=== PATIENT | female | born 1970 | race Caucasian/White ===

== ENCOUNTER 2019-01-05 23:42 | Emergency (ER) | payer OTHER ==
[2019-01-06 00:52] LABS: Basophils # (Auto) 0.1 K/mm3 (0.0-0.1); Basophils % (Auto) 0.9 % (0.0-1.8); Eosinophils # (Auto) 0.3 K/mm3 (0.0-0.4); Eosinophils % (Auto) 3.2 % (0.0-4.3); Hematocrit 42.1 % (30.3-42.9); Hemoglobin 14.2 gm/dl (10.1-14.3); Lymphocytes % (Auto) 20.8 % (13.4-35.0); Mean Corpuscular HGB Conc 34 % (30-34); Mean Corpuscular Volume 85 fl (79-97); Monocytes # (Auto) 0.6 K/mm3 (0.0-0.8); Monocytes % (Auto) 6.5 % (0.0-7.3); Platelet Count 363 K/mm3 (140-440); Red Blood Count 4.96 M/mm3 (3.65-5.03); Red Cell Distribution Width 13.8 % (13.2-15.2)
[2019-01-06 01:02] LABS: INR 0.85 (0.87-1.13)
[2019-01-06 01:03] LABS: Partial Thromboplastin Time 26.4 Sec. (24.2-36.6); Thrombin Time 14.6 Sec. (15.1-19.6)
[2019-01-06 01:14] LABS: BUN/Creatinine Ratio 50; Blood Urea Nitrogen 20 mg/dL (7-17); Calcium 9.8 mg/dL (8.4-10.2); Hemolysis Index 21
--- NOTE | 2019-01-06 01:40 | Cat Scan Report ---
CT HEAD/BRAIN WO CON CLINICAL INDICATION: Female, 48 years of age. left side of face b/l ue numbness x 2 weeks. COMPARISON: CT of the head from July 2018. TECHNIQUE: Contiguous axial images were obtained from the vertex through the skull base.This CT exam was perform ed using one or more of the following dose reduction techniques: automated exposure control, adjustme nt of the mA and/or kV according to patient size, or use of iterative reconstruction technique. FINDINGS: No acute intracranial hemorrhage, midline shift, or extra-axial fluid collection. Ventricles and cis terns are normal in size and configuration for the patient's age. Chronic infarct of the posterior ma rgin of the left cerebellum measuring 1.2 x 1.7 cm in axial dimension. This is stable from prior stud y. Otherwise, Scott white differentiation is maintained. Calvarium is grossly intact. Visualized ocu lar globes are grossly unremarkable. Visualized paranasal sinuses and mastoid air cells are grossly clear. IMPRESSION: No grossly acute intracranial abnormality. Stable chronic left cerebellar infarct. This document is electronically signed by Rogelio Melchor DO., January 06 2019 01:38:55 AM ET
[2019-01-06 05:24] VITALS: BP 134/91
[2019-01-06 06:04] LABS: Bacteria,Urine 4+ /HPF (Negative); Bilirubin,Urine NEG (Negative); Blood,Urine NEG (Negative); Color,Urine Yellow (Yellow); Mucus,Urine FEW /HPF; Urobilinogen,Urine < 2.0 mg/dL (<2.0)
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
[2019-01-06 07:01] LABS: HCG Qualitative,Urine Negative (Negative)
== END 2019-01-06 07:22 | disposition home or self-care (01) ==
LOC: ED 23:42
DX: N12 Tubulo-interstitial nephritis, not specified as acute or chronic (principal); R20.2 Paresthesia of skin; I10 Essential (primary) hypertension; E11.9 Type 2 diabetes mellitus without complications; Z90.89 Acquired absence of other organs; Z98.890 Other specified postprocedural states
CPT/HCPCS: 36415; 70450; 80048; 81001; 81025; 84484; 85025; 85610; 85670; 85730

== ENCOUNTER 2019-01-29 20:04 | Inpatient (IN) | payer SELFPAY ==
--- NOTE | 2019-01-29 20:31 | Emergency Department Report ---
Blank Doc - Documentation Documentation: This is a 48-year-old female that presents with abdominal pain with n/v. Fever and tachy in triage. This initial assessment/diagnostic orders/clinical plan/treatment(s) is/are subject to change based on patient's health status, clinical progression and re- assessment by fellow clinical providers in the ED. Further treatment and workup at subsequent clinical providers discretion. Patient/guardians urged not to elope from the ED as their condition may be serious if not clinically assessed and managed. Initial orders include: 1- Patient sent to MAIN ED for further evaluation and treatment 2- code sepsis protocol initiated 3- labs
[2019-01-29] MEDS ORDERED: NACL 0.9% 1000 ML IV ONE (20:39)
[2019-01-29 20:52] LABS: Basophils # (Auto) 0.1 K/mm3 (0.0-0.1); Basophils % (Auto) 0.5 % (0.0-1.8); Eosinophils % (Auto) 0.1 % (0.0-4.3); Hematocrit 36.2 % (30.3-42.9); Hemoglobin 12.6 gm/dl (10.1-14.3); Lymphocytes # (Auto) 0.7 K/mm3 (1.2-5.4); Lymphocytes % (Auto) 5.4 % (13.4-35.0); Mean Corpuscular HGB Conc 35 % (30-34); Mean Corpuscular Volume 84 fl (79-97); Monocytes # (Auto) 1.4 K/mm3 (0.0-0.8); Monocytes % (Auto) 10.5 % (0.0-7.3); Platelet Count 266 K/mm3 (140-440); Red Blood Count 4.31 M/mm3 (3.65-5.03); Red Cell Distribution Width 13.8 % (13.2-15.2)
[2019-01-29 21:10] LABS: Alanine Aminotransferase 43 units/L (7-56); Albumin 4.1 g/dL (3.9-5); BUN/Creatinine Ratio 35; Blood Urea Nitrogen 14 mg/dL (7-17); Calcium 8.8 mg/dL (8.4-10.2); Hemolysis Index 14
[2019-01-29] MEDS ORDERED: TYLENOL PO ONE (21:49)
[2019-01-29 21:51] LABS: Bacteria,Urine 4+ /HPF (Negative); Bilirubin,Urine NEG (Negative); Blood,Urine MOD (Negative); Color,Urine Yellow (Yellow); Mucus,Urine 3+ /HPF; Urobilinogen,Urine < 2.0 mg/dL (<2.0)
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
[2019-01-29] MEDS ORDERED: LEVAQUIN 750MG/150ML 750 MG/150 ML BAG IV ONE (22:14)
[2019-01-29] MEDS ORDERED: MORPHINE IV ONE (23:22)
[2019-01-29] MEDS ORDERED: ZOFRAN IV ONE (23:23)
--- NOTE | 2019-01-29 23:40 | Cat Scan Report ---
PROCEDURE: CT abdomen and pelvis without contrast. TECHNIQUE: Computerized axial tomography of the abdomen and pelvis was performed without intravenous contrast. This study is performed without intravascular contrast material and its sensitivity for ab dominal and pelvic pathology, including neoplasms, inflammation, abscess, free fluid, thrombosis, art erial dissection and infarction, is reduced compared with a contrast enhanced study. CT DOSE LENGTH PRODUCT: 1827.9 mGycm HISTORY: Abdominal pain. COMPARISONS: None. FINDINGS: The lung bases are clear. There are no pleural effusions. The heart size is mildly enlarged. The live r, pancreas and spleen are grossly normal. The gallbladder is present. There is no biliary dilatation . The adrenal glands are not enlarged. Both kidneys appear normal in size and configuration. There is a tiny nonobstructing calculus in the lower pole of the right kidney. This measures 4.2 mm. There is mild right hydroureter when compared to the left. There is no definite ureteral calculus identified however. The abdominal aorta has a normal caliber. There is no retroperitoneal adenopathy. The unopac ified gastrointestinal tract is unremarkable. The appendix is not visualized. The bladder, uterus and adnexal regions are unremarkable. There are bilateral fallopian tube clips. There are old fractures of the left superior and inferior pubic rami. IMPRESSION: Tiny nonobstructing right renal calculus. Mild right hydroureter without definite signs of an obstructing calculus. No evidence of acute disease in the abdomen or pelvis. This document is electronically signed by Florentin Block MD., Jan 29 2019 11:38:47 PM ET
--- NOTE | 2019-01-30 01:28 | History and Physical Report ---
History of Present Illness Date of examination: 01/30/19 History of present illness: 48-year-old woman with a history of hypertension, diabetes comes emergency room complaining of right flank pain that started 2 days ago, fever. Right flank pain is described as a ripping pain, constant, intensity 7/10, radiating to the back, better with pain medication in the emergency room. History for urinary tract infection in December, stated that she complete the treatment. Also complaining of dysuria. Review of systems Constitutional: no weight loss, chills, fever Ears, eyes, nose, mouth and throat: no nasal congestion, no nasal discharge, no sinus pressure, no vision change, no red eye. Neck: No neck pain or rigidity. Cardiovascular: no palpitations, chest pain Respiratory: no cough, shortness of breath Gastrointestinal: no hematochezia, abdominal pain Genitourinary : no frequency , no hematuria Musculoskeletal: no joint swelling or muscle ache Integumentary: no rash, no pruritis Neurological: no parathesias, no focal weakness Endocrine: no cold or heat intolerance, no polyuria or polydipsia Hematologic/Lymphatic: no easy bruising, no easy bleeding, no gland swelling Allergic/Immunologic: no urticaria, no angioedema. PAST MEDICAL HISTORY:hypertension, diabetes PAST SURGICAL HISTORY: Hip, ankle SOCIAL HISTORY: Denies alcohol, drugs, tobacco FAMILY HISTORY: Hypertension Medications and Allergies Allergies Allergy/AdvReac Type Severity Reaction Status Date / Time No Known Allergies Allergy Verified 08/08/18 14:28 Home Medications Medication Instructions Recorded Confirmed Last Taken Type No Known Home Medications [No 01/30/19 01/30/19 Unknown History Reported Home Medications] Exam - Physical Exam Narrative exam: General Apperance: The patient lying in bed, breathing comfortable HEENT: Normocephalic, atraumatic. Pupils equally round and reactive to light, EOMI, no sclericterus or JVD or thyromegaly or nodule. , no carotid bruit, mucous membranes moist, no exudate or erythema Heart: S1-S2, regular is rhythm Lungs: Clear to auscultation bilaterally, breathing comfortable Abdomen: Positive bowel sounds, soft, nontender, nondistended, no organomegaly Extremities:+ CVA tenderness No edema cyanosis clubbing Skin: no rash, nodule, warm and dry Neuro: cranial nerves 2-12 intact, speech is fluent, motor/sensory intact - Constitutional Vitals: Temp Pulse Resp BP Pulse Ox 99.6 F 109 H 25 H 116/69 97 01/30/19 00:21 01/30/19 00:00 01/30/19 00:00 01/30/19 00:00 01/30/19 00:00 Results - Labs CBC & Chem 7: 02/01/19 04:51 02/02/19 07:45 Labs: Abnormal lab results 01/29/19 01/29/19 01/29/19 Range/Units 20:35 20:35 20:35 WBC 13.8 H (4.5-11.0) K/mm3 MCHC 35 H (30-34) % Lymph % (Auto) 5.4 L (13.4-35.0) % [place] % (Auto) 10.5 H (0.0-7.3) % Lymph # 0.7 L (1.2-5.4) K/mm3 [place] # 1.4 H (0.0-0.8) K/mm3 Seg Neutrophils % 83.5 H (40.0-70.0) % Seg Neutrophils # 11.5 H (1.8-7.7) K/mm3 Sodium 135 L (137-145) mmol/L Chloride 97.7 L (98-107) mmol/L Creatinine 0.4 L (0.7-1.2) mg/dL Glucose 142 H (65-100) mg/dL Lipase 12 L (13-60) units/L Urine WBC (Auto) (0.0-6.0) /HPF 01/29/19 Range/Units 21:34 WBC (4.5-11.0) K/mm3 MCHC (30-34) % Lymph % (Auto) (13.4-35.0) % [place] % (Auto) (0.0-7.3) % Lymph # (1.2-5.4) K/mm3 [place] # (0.0-0.8) K/mm3 Seg Neutrophils % (40.0-70.0) % Seg Neutrophils # (1.8-7.7) K/mm3 Sodium (137-145) mmol/L Chlor[place] (98-107) mmol/L Creatinine (0.7-1.2) mg/dL Glucose (65-100) mg/dL Lipase (13-60) units/L Urine WBC (Auto) 73.0 H (0.0-6.0) /HPF - Imaging and Cardiology CT scan - abdomen: report reviewed CT scan - pelvis: report reviewed Assessment and Plan Assessment Acute pyelonephritis Right hydroureter Hypertension Diabetes Plan Admit to medicine Start IV Rocephin, first dose now, follow cultures Urology was consulted to see the patient Check fingersticks and initiate insulin sliding scale Continue appropriate outpatient medications DVT prophylaxis
[2019-01-30] MEDS ORDERED: ZOFRAN IV PRN ×2 (01:29→13:40)
[2019-01-30] MEDS ORDERED: D50W (25GM) Syringe IV PRN (01:29)
[2019-01-30] MEDS ORDERED: SODIUM CHLORIDE FLUSH SYRINGE 10 ML IV PRN (01:29)
[2019-01-30] MEDS: ROCEPHIN/NS 1 GM/50 ML 1 GM/50 ML BAG IV SCH (01:53)
[2019-01-30] MEDS: NACL 0.9% 1000 ML 1,000 ML IV SCH ×4 (01:53→20:25)
[2019-01-30] MEDS: TYLENOL PO PRN ×4 (02:13→17:33)
[2019-01-30] MEDS: PERCOCET 5/325 PO PRN ×2 (03:40→10:20)
[2019-01-30] MEDS: HumuLIN R SUB-Q SCH ×4 (08:30→21:35)
[2019-01-30 08:36] LABS: Basophils # (Auto) 0.1 K/mm3 (0.0-0.1); Basophils % (Auto) 0.7 % (0.0-1.8); Hemoglobin 12.5 gm/dl (10.1-14.3); Lymphocytes # (Auto) 0.9 K/mm3 (1.2-5.4); Lymphocytes % (Auto) 7.7 % (13.4-35.0); Mean Corpuscular HGB Conc 33 % (30-34); Mean Corpuscular Volume 85 fl (79-97); Platelet Count 239 K/mm3 (140-440); Red Blood Count 4.45 M/mm3 (3.65-5.03); Red Cell Distribution Width 13.9 % (13.2-15.2)
[2019-01-30 09:01] LABS: BUN/Creatinine Ratio 25; Blood Urea Nitrogen 10 mg/dL (7-17); Calcium 8.1 mg/dL (8.4-10.2); Hemolysis Index 5
[2019-01-30] MEDS ORDERED: LOVENOX SUB-Q SCH (10:00)
[2019-01-30] MEDS: SODIUM CHLORIDE FLUSH SYRINGE 10 ML IV SCH ×2 (10:15→21:35)
[2019-01-30] MEDS: LOVENOX SUB-Q SCH (10:15)
--- NOTE | 2019-01-30 11:36 | Consultation ---
History of Present Illness - Reason for Consult Consult date: 01/30/19 Sepsis Requesting physician: HERON HSU - History of Present Illness This patient is a 48-year old female with a past medical history of hypertension and diabetes, that presented at [facility] on 01/29/19 with complains of abdominal pain. Patient state that this has been ongoing for the past 2 days, in her lower abdominal region as well as right upper quadrant abdominal region. Upon further evaluation, she stated that she was treated for a UTI in and her treatment is completed. On admission WBC 13.8, Creatinine 0.4, Lactic acid 1.0, Temperature 103.1, HR 137, BP 123/76. U/A showed pyuria WBC 73, Small LE. Abdomen and Pelvis CT show tiny non obstructing right renal calculus. Mild right hydroureter without definite signs of an obstructing calculus. The lung bases are clear. Blood cultures are in progress. Review of Systems: General: + fever, +chills, no nightsweats, unintentional weight change, or yenni nge in appetite Cutaneous: no rash, pruritus Head: no headaches or injury Eyes: no changes in vision, eye pain, double vision Ears: no ear pain, ear discharge, ringing or hearing loss Nose: no nose bleeding, stuffiness Mouth & throat: no bleeding gums, no horseness, no dental problems, or swollen glands Neck: no pain, node enlargement/lumps, tyroid enlargement or tenderness Respiratory: no cough, wheezing, sputum, hemoptysis, pleuritic chest pain Cardiovascular: no chest pain, leg edema, cyanosis, [place], orthopnea Musculoskeletal: no decreased joint motion, bone or joint pain, joint swelling, muscle aches Gastrointestinal: no nausea, vomiting, hematemesis, Genitourinary/Reproductive:+CVA tenderness, right flank pain and suprapubic tenderness Neurogical: no seizures, no headaches, no weakness, no paresthesias, no loss of speech or vision; no memory loss, no vertigo, no tremors, no numbness Psychiatric: stable mood; no excessive anxiety, sadness or moodiness Medications and Allergies Allergies Allergy/AdvReac Type Severity Reaction Status Date / Time No Known Allergies Allergy Verified 08/08/18 14:28 Home Medications Medication Instructions Recorded Confirmed Last Taken Type No Known Home Medications [No 01/30/19 01/30/19 Unknown History Reported Home Medications] Active Meds: Active Medications Acetaminophen (Tylenol) 650 mg PO Q4H PRN PRN Reason: Pain MILD(1-3)/Fever >100.5/SALINAS Last Admin: 01/30/19 08:21 Dose: 650 mg Documented by: Dextrose (D50w (25gm) Syringe) 50 ml IV PRN PRN PRN Reason: Hypoglycemia Enoxaparin Sodium (Lovenox) 40 mg SUB-Q QDAY@1000 [place] Last Admin: 01/30/19 10:15 Dose: 40 mg Documented by: Ceftriaxone Sodium (Rocephin/Ns 1 Gm/50 Ml) 1 gm in 50 mls @ 100 mls/hr IV Q24HR@0600 [facility]; Protocol Last Admin: 01/30/19 01:53 Dose: 100 mls/hr Documented by: Sodium Chloride (Nacl 0.9% 1000 Ml) 1,000 mls @ 150 mls/hr IV DIRECT [place] Last Admin: 01/30/19 08:25 Dose: 150 mls/hr Documented by: Insulin Human Regular (Humulin R) 0 units SUB-Q ACHS [facility]; Protocol Last Admin: 01/30/19 08:30 Dose: Not Given Documented by: Ondansetron HCl (Zofran) 4 mg IV Q8H PRN PRN Reason: Nausea And Vomiting Last Admin: 01/30/19 08:25 Dose: 4 mg Documented by: Oxycodone/Acetaminophen (Percocet 5/325) 1 tab PO Q6H PRN PRN Reason: Pain, Moderate (4-6) Last Admin: 01/30/19 10:20 Dose: 1 tab Documented by: Sodium Chloride (Sodium Chloride Flush Syringe 10 Ml) 10 ml IV BID [facility] Last Admin: 01/30/19 10:15 Dose: 10 ml Documented by: Sodium Chloride (Sodium Chloride Flush Syringe 10 Ml) 10 ml IV PRN PRN PRN Reason: LINE FLUSH Physical Examination - Physical Exam Narrative exam: Constitutional: Alert. Generalized weakness. Mild distress observed Head, Ears, Nose: Normocephalic, atraumatic. External ears, nose normal Eyes: Conjunctivae/corneas clear. No icterus. No ptosis. Neck: Supple, no meningeal signs Oral: dentition fair. no thrush. Cardiovascular: S1, S2 normal. Respiratory: Good air entry, clear to auscultation bilaterally GI: Soft, non-tender; bowel sounds. + right flank pain, suprapubic tenderness. Mild CVA tenderness Musculoskeletal: No pedal edema, no cyanosis. Skin: No rash or abscess. Dry skin Hem/Lymphatic: No palpable cervical or supraclavicular nodes. No lymphangitis Psych: Mood ok. Affect normal Neurological: Awake, alert, oriented. - Constitutional Vitals: Vital Signs Temp Pulse Resp BP Pulse Ox 102.6 F H 109 H 22 144/92 96 01/30/19 08:15 01/30/19 08:15 01/30/19 08:15 01/30/19 08:15 01/30/19 08:15 Temperature -Last 24 Hours Temperature 102.6 F Temperature 99.7 F Temperature 99.3 F Temperature 102.7 F Temperature 102.1 F Temperature 99.6 F Temperature 101.3 F Temperature 103.1 F Temperature 103.1 F Results - Labs CBC & Chem 7: 01/30/19 07:42 01/30/19 07:42 Labs: Abnormal lab results 01/29/19 01/29/19 01/29/19 Range/Units 20:35 20:35 20:35 WBC 13.8 H (4.5-11.0) K/mm3 MCHC 35 H (30-34) % Lymph % (Auto) 5.4 L (13.4-35.0) % [place] % (Auto) 10.5 H (0.0-7.3) % Lymph # 0.7 L (1.2-5.4) K/mm3 [place] # 1.4 H (0.0-0.8) K/mm3 Seg Neutrophils % 83.5 H (40.0-70.0) % Seg Neutrophils # 11.5 H (1.8-7.7) K/mm3 Sodium 135 L (137-145) mmol/L Chloride 97.7 L (98-107) mmol/L Carbon Dioxide (22-30) mmol/L Creatinine 0.4 L (0.7-1.2) mg/dL Glucose 142 H (65-100) mg/dL POC Glucose (70-105) Calcium (8.4-10.2) mg/dL Lipase 12 L (13-60) units/L Urine WBC (Auto) (0.0-6.0) /HPF 01/29/19 01/30/19 01/30/19 Range/Units 21:34 07:41 07:42 WBC 11.6 H (4.5-11.0) K/mm3 MCHC (30-34) % Lymph % (Auto) 7.7 L (13.4-35.0) % [place] % (Auto) 9.0 H (0.0-7.3) % Lymph # 0.9 L (1.2-5.4) K/mm3 [place] # 1.0 H (0.0-0.8) K/mm3 Seg Neutrophils % 82.6 H (40.0-70.0) % Seg Neutrophils # 9.6 H (1.8-7.7) K/mm3 Sodium (137-145) mmol/L Chloride (98-107) mmol/L Carbon Dioxide (22-30) mmol/L Creatinine (0.7-1.2) mg/dL Glucose (65-100) mg/dL POC Glucose 145 H (70-105) Calcium (8.4-10.2) mg/dL Lipase (13-60) units/L Urine WBC (Auto) 73.0 H (0.0-6.0) /HPF 01/30/19 Range/Units 07:42 WBC (4.5-11.0) K/mm3 MCHC (30-34) % Lymph % (Auto) (13.4-35.0) % [place] % (Auto) (0.0-7.3) % Lymph # (1.2-5.4) K/mm3 [place] # (0.0-0.8) K/mm3 Seg Neutrophils % (40.0-70.0) % Seg Neutrophils # (1.8-7.7) K/mm3 Sodium (137-145) mmol/L Chloride (98-107) mmol/L Carbon Dioxide 21 L (22-30) mmol/L Creatinine 0.4 L (0.7-1.2) mg/dL Glucose 133 H (65-100) mg/dL POC Glucose (70-105) Calcium 8.1 L (8.4-10.2) mg/dL Lipase (13-60) units/L Urine WBC (Auto) (0.0-6.0) /HPF - Imaging and Cardiology CT scan - abdomen: report reviewed ( tiny non obstructing right renal calculus. Mild right hydroureter without definite signs of an obstructing calculus. The lung bases are clear. ) Assessment and Plan Cultures: 01/29/2019 Blood: in progress A/P: 48-dilan old female with a past medical history of hypertension and diabetes, that presented at [facility] on 01/29/19 with complains of right flank pain, radiating to the back. Patient states that this has been ongoing for the past 2 days, in her lower abdominal region, as well as right upper quadrant abdominal region. Upon further evaluation, she stated that she was treated for a UTI in December and her treatment is completed. Admitted for: 1. Sepsis: on admission: evidenced by leukocytosis, fever and tachycardia. Etiology most likely UTI. Urine cultures pending. Blood cultures show no growth to date. CT of abdomen and pelvis show no lung consolidation. 2. UTI : U/A c/w UTI, WBC 73, small LE. Urine culture in progress. CT of abdomen and pelvis show tiny non obstructing right renal calculus and mild right hydroureter without definite signs of obstructing calculus. Previous admission at [facility] in December with UTI. Given a prescription for Ciprofloxacin BID, 20 day regimen. Treatment completed. Currently being treated with Ceftriaxone. 3. Type 2 Diabetes: recommend tight glycemic control. Plan: -follow-up blood cultures -follow-up urine culture -f/u urology consult -continue ceftriaxone, D2 -monitor fevers [facility] M: [phone] O:[phone]
--- NOTE | 2019-01-30 14:41 | Event Note ---
Date: 01/30/19 Patient seen and examined continues to have nausea with vomiting and intermittent fever MAXIMUM TEMPERATURE of 102.6. Discussed with nursing staff and also the patient's will proceed with ID consult. We'll opioids adjust medications for better control also.
[2019-01-31] MEDS: TYLENOL PO PRN ×2 (00:04→11:56)
[2019-01-31] MEDS: NACL 0.9% 1000 ML 1,000 ML IV SCH ×2 (02:46→14:31)
[2019-01-31] MEDS: ROCEPHIN/NS 1 GM/50 ML 1 GM/50 ML BAG IV SCH (05:14)
[2019-01-31] MEDS: PERCOCET 5/325 PO PRN ×2 (05:18→16:24)
[2019-01-31] MEDS: HumuLIN R SUB-Q SCH ×4 (08:19→22:03)
--- NOTE | 2019-01-31 09:38 | Progress Note ---
Assessment and Plan Cultures: 01/29/2019 Blood: in progress 01/29/2019 Urine: Urine culture grew GNR A/P: 48-dilan old female with a past medical history of hypertension and diabetes, that presented at [facility] on 01/29/19 with complains of right flank pain, radiating to the back. Patient states that this has been ongoing for the past 2 days, in her lower abdominal region, as well as right upper quadrant abdominal region. Upon further evaluation, she stated that she was treated for a UTI in December and her treatment is completed. Admitted for: 1. Sepsis: Continuing. Noted fever spike of 102.9. Etiology most likely UTI. Urine cultures pending. Blood cultures show no growth to date. CT of abdomen and pelvis show no lung consolidation. 2. Complicated UTI: U/A c/w UTI, WBC 73, small LE. Urine culture grew GMR. . CT of abdomen and pelvis show tiny non obstructing right renal calculus and mild right hydroureter without definite signs of obstructing calculus. Previous admission at [facility] in December with UTI. Given a prescription for Ciprofloxacin BID, 20 day regimen. Treatment completed. Currently being treated with Ceftri axone. 3. Type 2 Diabetes: recommend tight glycemic control. Plan: -follow-up blood cultures -follow-up urine culture for ID and susceptibility -f/u urology consult -discontinue ceftriaxone -Start Cefepime 2gm every 12 hours -monitor fevers Dr. Andrews will be rounding this weekend, . Please call for questions [facility] M: [phone] O:[phone] Subjective Date of service: 01/31/19 Interval history: Patient seen and examined. Continues to complain of right flank pain. +fevers. Objective - Exam Narrative Exam: Constitutional: Alert. Generalized weakness. Acute distress observed Head, Ears, Nose: Normocephalic, atraumatic. External ears, nose normal Eyes: Conjunctivae/corneas clear. No icterus. No ptosis. Neck: Supple, no meningeal signs Oral: dentition fair. no thrush. Cardiovascular: S1, S2 normal. Respiratory: Good air entry, clear to auscultation bilaterally GI: Soft, non-tender; bowel sounds. + right flank pain, suprapubic tenderness. Mild CVA tenderness Musculoskeletal: No pedal edema, no cyanosis. Skin: No rash or abscess. Hem/Lymphatic: No palpable cervical or supraclavicular nodes. No lymphangitis Psych: Mood ok. Affect normal Neurological: Awake, alert, oriented. - Constitutional Vitals: Vital Signs Temp Pulse Resp BP Pulse Ox 100.5 F H 95 H 17 131/110 100 01/31/19 05:16 01/31/19 05:16 01/31/19 06:18 01/31/19 05:16 01/31/19 05:16 Temperature -Last 24 Hours Temperature 100.5 F Temperature 102.9 F Temperature 102.9 F Temperature 100.9 F Temperature 98.2 F Temperature 100.5 F - Labs CBC & Chem 7: 01/31/19 10:02 01/30/19 07:42 Labs: Abnormal lab results 01/30/19 01/30/19 01/30/19 Range/Units 11:22 16:33 21:25 POC Glucose 176 H 125 H 117 H (70-105)
[2019-01-31 10:22] LABS: Basophils % (Auto) 0.5 % (0.0-1.8); Hematocrit 31.9 % (30.3-42.9); Lymphocytes # (Auto) 0.5 K/mm3 (1.2-5.4); Lymphocytes % (Auto) 7.9 % (13.4-35.0); Mean Corpuscular HGB Conc 34 % (30-34); Mean Corpuscular Volume 84 fl (79-97); Monocytes # (Auto) 0.4 K/mm3 (0.0-0.8); Monocytes % (Auto) 5.5 % (0.0-7.3); Platelet Count 206 K/mm3 (140-440); Red Blood Count 3.82 M/mm3 (3.65-5.03); Red Cell Distribution Width 13.3 % (13.2-15.2)
[2019-01-31] MEDS: LOVENOX SUB-Q SCH (11:57)
[2019-01-31] MEDS: SODIUM CHLORIDE FLUSH SYRINGE 10 ML IV SCH ×2 (11:57→22:03)
[2019-01-31] MEDS: MAXIPIME/NS 2 GM/100 ML 2 GM/100 ML BAG IV SCH ×2 (14:28→22:03)
--- NOTE | 2019-01-31 15:20 | Progress Note ---
Assessment and Plan Assessment and plan: 48-year-old woman with a history of hypertension, diabetes comes emergency room complaining of right flank pain that started 2 days ago, fever. Right flank pain is described as a ripping pain, constant, intensity 7/10, radiating to the back, better with pain medication in the emergency room. History for urinary tract infection in December, stated that she complete the treatment. Also complaining of dysuria. On admission to the hospital patient is noted to have very high fevers. Urine cultures showing gram-negative rods Major studies consistent with nephrolithiasis Sepsis due to pyelonephritis Nephrolithiasis Acute pyelonephritis Acute gastroenteritis Right hydroureter Hypertension Diabetes Mellitus Plan Continue supportive care Urology consult, Discussed consult with them today. Abx per ID, now on cefepim Continue accuchecks Change to D5NS Keep patient NPO due to nausea and vomiting Check fingersticks and initiate insulin sliding scale Continue appropriate outpatient medications DVT prophylaxis Plan discussed with the patient. History Interval history: Patient is examined this morning still with recurrent fever. she still reports a 3/10 right flank pain. Also associated nausea and vomiting. Discussed with infectious disease we'll consult urology. Nothing by mouth at this time. Hospitalist Physical - Physical exam Narrative exam: VITAL SIGNS: Reviewed. GENERAL: The patient appeared ill, Vital signs as documented. HEAD: No signs of head trauma. EYES: Pupils are equal. Extraocular motions intact. EARS: Hearing grossly intact. MOUTH: Oropharynx is normal. NECK: No adenopathy, no JVD. Mildly tender on the right side. CHEST: Chest with clear breath sounds bilaterally. No wheezes, rales, or rhonchi. CARDIAC: Regular rate and rhythm. S1 and S2, without murmurs, gallops, or rubs. VASCULAR: No Edema. Peripheral pulses normal and equal in all extremities. ABDOMEN: Soft, non distended. Right flank tenderness No rebound or guarding, and no masses palpated. Bowel Sounds normal. MUSCULOSKELETAL: Good range of motion of all major joints. Extremities without clubbing, cyanosis or edema. NEUROLOGIC EXAM: Alert and oriented x 3 No focal sensory or strength deficits. Speech normal. Follows commands. PSYCHIATRIC: Mood normal. SKIN: No rash or lesions. - Constitutional Vitals: Temp Pulse Resp BP Pulse Ox 107.7 F H 90 22 135/85 97 01/31/19 11:28 01/31/19 11:28 01/31/19 11:28 01/31/19 11:28 01/31/19 11:28 Results - Labs CBC & Chem 7: 01/31/19 10:02 01/30/19 07:42 Labs: Laboratory Last Values WBC 6.8 K/mm3 (4.5-11.0) 01/31/19 10:02 RBC 3.82 M/mm3 (3.65-5.03) 01/31/19 10:02 Hgb 11.0 gm/dl (10.1-14.3) 01/31/19 10:02 Hct 31.9 % (30.3-42.9) D 01/31/19 10:02 MCV 84 fl (79-97) 01/31/19 10:02 MCH 29 pg (28-32) 01/31/19 10:02 MCHC 34 % (30-34) 01/31/19 10:02 RDW 13.3 % (13.2-15.2) 01/31/19 10:02 Plt Count 206 K/mm3 (140-440) 01/31/19 10:02 Lymph % (Auto) 7.9 % (13.4-35.0) L 01/31/19 10:02 [place] % (Auto) 5.5 % (0.0-7.3) 01/31/19 10:02 Eos % (Auto) 0.0 % (0.0-4.3) 01/31/19 10:02 Baso % (Auto) 0.5 % (0.0-1.8) 01/31/19 10:02 Lymph # 0.5 K/mm3 (1.2-5.4) L 01/31/19 10:02 [place] # 0.4 K/mm3 (0.0-0.8) 01/31/19 10:02 Eos # 0.0 K/mm3 (0.0-0.4) 01/31/19 10:02 Baso # 0.0 K/mm3 (0.0-0.1) 01/31/19 10:02 Seg Neutrophils % 86.1 % (40.0-70.0) H 01/31/19 10:02 Seg Neutrophils # 5.8 K/mm3 (1.8-7.7) 01/31/19 10:02 Sodium 139 mmol/L (137-145) 01/30/19 07:42 Potassium 3.6 mmol/L (3.6-5.0) 01/30/19 07:42 Chloride 102.0 mmol/L (98-107) 01/30/19 07:42 Carbon Dioxide 21 mmol/L (22-30) L 01/30/19 07:42 20 mmol/L 01/30/19 07:42 BUN 10 mg/dL (7-17) 01/30/19 07:42 0.4 mg/dL (0.7-1.2) L 01/30/19 07:42 Estimated GFR > 60 ml/min 01/30/19 07:42 25 % 01/30/19 07:42 Glucose 133 mg/dL (65-100) H 01/30/19 07:42 POC Glucose 107 (70-105) H 01/31/19 11:04 Lactic Acid 0.90 mmol/L (0.7-2.0) 01/29/19 23:27 Calcium 8.1 mg/dL (8.4-10.2) L 01/30/19 07:42 0.90 mg/dL (0.1-1.2) 01/29/19 20:35 AST 37 units/L (5-40) 01/29/19 20:35 ALT 43 units/L (7-56) 01/29/19 20:35 105 units/L (35-129) 01/29/19 20:35 7.5 g/dL (6.3-8.2) 01/29/19 20:35 4.1 g/dL (3.9-5) 01/29/19 20:35 1.2 % 01/29/19 20:35 12 units/L (13-60) L 01/29/19 20:35 Yellow (Yellow) 01/29/19 21:34 Cloudy (Clear) 01/29/19 21:34 5.0 (5.0-7.0) 01/29/19 21:34 Ur Specific [place] 1.019 (1.003-1.030) 01/29/19 21:34 100 mg/dl mg/dL (Negative) 01/29/19 21:34 Neg mg/dL (Negative) 01/29/19 21:34 Neg mg/dL (Negative) 01/29/19 21:34 Mod (Negative) 01/29/19 21:34 Pos (Negative) 01/29/19 21:34 Neg (Negative) 01/29/19 21:34 < 2.0 mg/dL (<2.0) 01/29/19 21:34 Ur Leukocyte Esterase Sm (Negative) 01/29/19 21:34 73.0 /HPF (0.0-6.0) H 01/29/19 21:34 19.0 /HPF (0.0-6.0) 01/29/19 21:34 U Epithel Cells (Auto) 12.0 /HPF (0-13.0) 01/29/19 21:34 4+ /HPF (Negative) 01/29/19 21:34 3+ /HPF 01/29/19 21:34 Blood Type O POSITIVE 01/29/19 21:14 Antibody Screen Negative 01/29/19 21:14 Active Medications - Current Medications Current Medications: Generic Name Dose Route Start Last Admin Trade Name Freq PRN Reason Stop Dose Admin Acetaminophen 650 mg 01/30/19 01:29 01/31/19 11:56 Tylenol PO 650 mg Q4H PRN Administration Pain MILD(1-3)/Fever >100.5/SALINAS Dextrose 50 ml 01/30/19 01:29 D50w (25gm) Syringe IV PRN PRN Hypoglycemia Enoxaparin Sodium 40 mg 01/30/19 10:00 01/31/19 11:57 Lovenox SUB-Q 40 mg QDAY@1000 [place] Administration Sodium Chloride 1,000 mls @ 150 mls/hr 01/30/19 02:00 01/31/19 14:31 Nacl 0.9% 1000 Ml IV 150 mls/hr DIRECT [place] Administration Cefepime HCl 2 gm in 100 mls @ 200 mls/hr 01/31/19 12:00 01/31/19 14:28 Maxipime/Ns 2 Gm/100 Ml IV 200 mls/hr Q12HR [place] Administration Protocol Insulin Human Regular 0 units 01/30/19 07:30 01/31/19 14:00 Humulin R SUB-Q Not Given ACHS [place] Protocol Morphine Sulfate 2 mg 01/30/19 12:01 Morphine IV Q4H PRN Pain, Moderate (4-6) Ondansetron HCl 4 mg 01/30/19 13:40 01/30/19 13:50 Zofran IV 4 mg Q4H PRN Administration Nausea And Vomiting Oxycodone/Acetaminophen 1 tab 01/30/19 01:29 01/31/19 05:18 Percocet 5/325 PO 1 tab Q6H PRN Administration Pain, Moderate (4-6) Sodium Chloride 10 ml 01/30/19 10:00 01/31/19 11:57 Sodium Chloride Flush Syringe 10 Ml IV 10 ml BID [place] Administration Sodium Chloride 10 ml 01/30/19 01:29 Sodium Chloride Flush Syringe 10 Ml IV PRN PRN LINE FLUSH
[2019-01-31] MEDS: D5NS 1,000 ML IV SCH (17:03)
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
[2019-01-31] MEDS: MORPHINE IV PRN (22:11)
[2019-01-31] MEDS ORDERED: TYLENOL PR PRN (22:29)
[2019-02-01 05:53] LABS: Alanine Aminotransferase 39 units/L (7-56); Albumin 2.7 g/dL (3.9-5); BUN/Creatinine Ratio 18; Blood Urea Nitrogen 7 mg/dL (7-17); Calcium 8.4 mg/dL (8.4-10.2); Hemolysis Index 3
[2019-02-01 06:16] LABS: Hematocrit 32.1 % (30.3-42.9); Hemoglobin 11.1 gm/dl (10.1-14.3); Mean Corpuscular HGB Conc 35 % (30-34); Mean Corpuscular Volume 84 fl (79-97); Platelet Count 218 K/mm3 (140-440); Red Blood Count 3.82 M/mm3 (3.65-5.03); Red Cell Distribution Width 13.6 % (13.2-15.2)
--- NOTE | 2019-02-01 08:26 | Progress Note ---
Assessment and Plan Assessment and plan: 48-year-old woman with a history of hypertension, diabetes comes emergency room complaining of right flank pain that started 2 days ago, fever. Right flank pain is described as a ripping pain, constant, intensity 7/10, radiating to the back, better with pain medication in the emergency room. History for urinary tract infection in December, stated that she complete the treatment. Also complaining of dysuria. On admission to the hospital patient is noted to have very high fevers. Urine cultures showing gram-negative rods-ESBL Major studies consistent with nephrolithiasis Sepsis due to pyelonephritis Nephrolithiasis Acute pyelonephritis Acute gastroenteritis Right hydroureter Hypertension Diabetes Mellitus Plan Continue supportive care Urology input noted, renal ultrasound reviewed, no obstruction. can resume diet place on isolation wbc improved, fever still present but not to the degree noted yesterday Replace electroyte await ID/Sensitivity from urine culture Abx per ID, now on cefepim Continue accuchecks Change to D5NS Keep patient NPO due to nausea and vomiting Check fingersticks and initiate insulin sliding scale Continue appropriate outpatient medications DVT prophylaxis Plan discussed with the patient. History Interval history: Patient is examined this morning still with recurrent fever. she still reports a 2/10 right flank pain. Also associated nausea and vomiting. Discussed with infectious disease. us does not show hydronephrosis, fever is improving, can start diet Hospitalist Physical - Physical exam Narrative exam: VITAL SIGNS: Reviewed. GENERAL: The patient appeared ill, Vital signs as documented. HEAD: No signs of head trauma. EYES: Pupils are equal. Extraocular motions intact. EARS: Hearing grossly intact. MOUTH: Oropharynx is normal. NECK: No adenopathy, no JVD. Mildly tender on the right side. CHEST: Chest with clear breath sounds bilaterally. No wheezes, rales, or rhonchi. CARDIAC: Regular rate and rhythm. S1 and S2, without murmurs, gallops, or rubs. VASCULAR: No Edema. Peripheral pulses normal and equal in all extremities. ABDOMEN: Soft, non distended. Right flank tenderness No rebound or guarding, and no masses palpated. Bowel Sounds normal. MUSCULOSKELETAL: Good range of motion of all major joints. Extremities without clubbing, cyanosis or edema. NEUROLOGIC EXAM: Alert and oriented x 3 No focal sensory or strength deficits. Speech normal. Follows commands. PSYCHIATRIC: Mood normal. SKIN: No rash or lesions. - Constitutional Vitals: Temp Pulse Resp BP Pulse Ox 99.1 F 84 20 115/76 98 02/01/19 05:07 02/01/19 05:07 02/01/19 05:07 02/01/19 05:07 02/01/19 05:07 Results - Labs CBC & Chem 7: 02/01/19 04:51 02/02/19 07:45 Labs: Laboratory Last Values WBC 6.3 K/mm3 (4.5-11.0) 02/01/19 04:51 RBC 3.82 M/mm3 (3.65-5.03) 02/01/19 04:51 Hgb 11.1 gm/dl (10.1-14.3) 02/01/19 04:51 Hct 32.1 % (30.3-42.9) 02/01/19 04:51 MCV 84 fl (79-97) 02/01/19 04:51 MCH 29 pg (28-32) 02/01/19 04:51 MCHC 35 % (30-34) H 02/01/19 04:51 RDW 13.6 % (13.2-15.2) 02/01/19 04:51 Plt Count 218 K/mm3 (140-440) 02/01/19 04:51 Lymph % (Auto) 7.9 % (13.4-35.0) L 01/31/19 10:02 [place] % (Auto) 5.5 % (0.0-7.3) 01/31/19 10:02 Eos % (Auto) 0.0 % (0.0-4.3) 01/31/19 10:02 Baso % (Auto) 0.5 % (0.0-1.8) 01/31/19 10:02 Lymph # 0.5 K/mm3 (1.2-5.4) L 01/31/19 10:02 [place] # 0.4 K/mm3 (0.0-0.8) 01/31/19 10:02 Eos # 0.0 K/mm3 (0.0-0.4) 01/31/19 10:02 Baso # 0.0 K/mm3 (0.0-0.1) 01/31/19 10:02 Seg Neutrophils % 86.1 % (40.0-70.0) H 01/31/19 10:02 Seg Neutrophils # 5.8 K/mm3 (1.8-7.7) 01/31/19 10:02 Sodium 136 mmol/L (137-145) L 02/01/19 04:51 Potassium 3.0 mmol/L (3.6-5.0) L 02/01/19 04:51 Chloride 98.9 mmol/L (98-107) 02/01/19 04:51 Carbon Dioxide 25 mmol/L (22-30) 02/01/19 04:51 15 mmol/L 02/01/19 04:51 BUN 7 mg/dL (7-17) 02/01/19 04:51 0.4 mg/dL (0.7-1.2) L 02/01/19 04:51 Estimated GFR > 60 ml/min 02/01/19 04:51 18 % 02/01/19 04:51 Glucose 146 mg/dL (65-100) H 02/01/19 04:51 POC Glucose 128 (70-105) H 01/31/19 22:04 Lactic Acid 0.90 mmol/L (0.7-2.0) 01/29/19 23:27 Calcium 8.4 mg/dL (8.4-10.2) 02/01/19 04:51 0.40 mg/dL (0.1-1.2) 02/01/19 04:51 AST 31 units/L (5-40) 02/01/19 04:51 ALT 39 units/L (7-56) 02/01/19 04:51 92 units/L (35-129) 02/01/19 04:51 6.1 g/dL (6.3-8.2) L 02/01/19 04:51 2.7 g/dL (3.9-5) L 02/01/19 04:51 0.8 % 02/01/19 04:51 12 units/L (13-60) L 01/29/19 20:35 Yellow (Yellow) 01/29/19 21:34 Cloudy (Clear) 01/29/19 21:34 5.0 (5.0-7.0) 01/29/19 21:34 Ur Specific [place] 1.019 (1.003-1.030) 01/29/19 21:34 100 mg/dl mg/dL (Negative) 01/29/19 21:34 Neg mg/dL (Negative) 01/29/19 21:34 Neg mg/dL (Negative) 01/29/19 21:34 Mod (Negative) 01/29/19 21:34 Pos (Negative) 01/29/19 21:34 Neg (Negative) 01/29/19 21:34 < 2.0 mg/dL (<2.0) 01/29/19 21:34 Ur Leukocyte Esterase Sm (Negative) 01/29/19 21:34 73.0 /HPF (0.0-6.0) H 01/29/19 21:34 19.0 /HPF (0.0-6.0) 01/29/19 21:34 U Epithel Cells (Auto) 12.0 /HPF (0-13.0) 01/29/19 21:34 4+ /HPF (Negative) 01/29/19 21:34 3+ /HPF 01/29/19 21:34 Blood Type O POSITIVE 01/29/19 21:14 Antibody Screen Negative 01/29/19 21:14 Active Medications - Current Medications Current Medications: Generic Name Dose Route Start Last Admin Trade Name Freq PRN Reason Stop Dose Admin Acetaminophen 650 mg 01/30/19 01:29 01/31/19 11:56 Tylenol PO 650 mg Q4H PRN Administration Pain MILD(1-3)/Fever >100.5/SALINAS Acetaminophen 650 mg 01/31/19 22:29 01/31/19 23:14 Tylenol [place] 650 mg Q4H PRN Administration Fever >101 Dextrose 50 ml 01/30/19 01:29 D50w (25gm) Syringe IV PRN PRN Hypoglycemia Enoxaparin Sodium 40 mg 01/30/19 10:00 01/31/19 11:57 Lovenox SUB-Q 40 mg QDAY@1000 [place] Administration Cefepime HCl 2 gm in 100 mls @ 200 mls/hr 01/31/19 12:00 01/31/19 22:03 Maxipime/Ns 2 Gm/100 Ml IV 200 mls/hr Q12HR [place] Administration Protocol Dextrose/Sodium Chloride 1,000 mls @ 100 mls/hr 01/31/19 18:00 01/31/19 17:03 D5ns IV 100 mls/hr DIRECT [place] Administration Potassium Chloride 10 meq in 100 mls @ 100 mls/hr 02/01/19 09:00 Kcl 10meq/100ml IV 02/01/19 12:59 Q1H [place] Magnesium Sulfate 1 gm/ Sodium 52 mls @ 52 mls/hr 02/01/19 08:23 Chloride IV 02/01/19 09:22 ONCE ONE Insulin Human Regular 0 units 01/30/19 07:30 01/31/19 22:03 Humulin R SUB-Q Not Given A[facility]S [facility] Protocol Morphine Sulfate 2 mg 01/30/19 12:01 01/31/19 22:11 Morphine IV 2 mg Q4H PRN Administration Pain, Moderate (4-6) Ondansetron HCl 4 mg 01/30/19 13:40 01/30/19 13:50 Zofran IV 4 mg Q4H PRN Administration Nausea And Vomiting Oxycodone/Acetaminophen 1 tab 01/30/19 01:29 01/31/19 16:24 Percocet 5/325 PO 1 tab Q6H PRN Administration Pain, Moderate (4-6) Sodium Chloride 10 ml 01/30/19 10:00 01/31/19 22:03 Sodium Chloride Flush Syringe 10 Ml IV 10 ml BID [place] Administration Sodium Chloride 10 ml 01/30/19 01:29 Sodium Chloride Flush Syringe 10 Ml IV PRN PRN LINE FLUSH
--- NOTE | 2019-02-01 08:29 | Progress Note ---
Assessment and Plan Cultures: 01/29/2019 Blood culture: NGTD 01/29/2019 Urine culture: ESBL E coli A/P 48-dilan old female with a past medical history of hypertension and diabetes, that presented at [facility] on 01/29/19 with complains of right flank pain, radiating to the back. Patient states that this has been ongoing for the past 2 days, in her lower abdominal region, as well as right upper quadrant abdominal region. Upon further evaluation, she stated that she was treated for a UTI in December and her treatment is completed. Admitted for: 1. Sepsis: Continuing. Etiology most likely UTI. Urine cultures ESBL E coli. Blood cultures show no growth to date. CT of abdomen and pelvis show no lung consolidation. Febrile on 01/31. 2. Complicated UTI: U/A c/w UTI, WBC 73, small LE. CT of abdomen and pelvis show tiny non obstructing right renal calculus and mild right hydroureter without definite signs of obstructing calculus. Previous admission at [facility] in December with UTI. Given a prescription for Ciprofloxacin BID, 20 day regimen, treatment completed. Urine culture grew ESBL E coli. Renal US on 02/01 w/o hydronephrosis and no definitive nephrolithiasis. 3. Type 2 Diabetes: recommend tight glycemic control. Plan: -follow-up blood cultures. -Urology evaluation noted. -Monitor fever. -Stop Cefepime. -Start ertapenem. -Contact isolation. Celi Andrews MD Infectious Diseases Specialist [facility] ([facility]) M [phone] Subjective Date of service: 02/01/19 Interval history: Febrile yesterday. Afebrile so far today. Continues to complain of right flank pain. Objective - Exam Narrative Exam: Constitutional: Pt in NAD. Alert. Head, Ears, Nose: Normocephalic, atraumatic. External ears, nose normal Eyes: Conjunctivae/corneas clear. No icterus. No ptosis. Neck: Supple, no meningeal signs Oral: dentition fair. No thrush. Cardiovascular: S1, S2 normal. Respiratory: Good air entry, clear to auscultation bilaterally GI: Soft, bbowel sounds. + right flank pain, suprapubic tenderness. Mild CVA tenderness Musculoskeletal: No pedal edema, no cyanosis. Skin: No rash or abscess. Hem/Lymphatic: No palpable cervical or supraclavicular nodes. No lymphangitis Psych: Mood normal. Affect normal Neurological: Awake, alert, oriented x3. Non-focal. - Constitutional Vitals: Vital Signs Temp Pulse Resp BP Pulse Ox 99.1 F 84 20 115/76 98 02/01/19 05:07 02/01/19 05:07 02/01/19 05:07 02/01/19 05:07 02/01/19 05:07 Temperature -Last 24 Hours Temperature 99.1 F Temperature 98.1 F Temperature 102.9 F Temperature 98.5 F Temperature 101.7 F Temperature 107.7 F - Labs CBC & Chem 7: 02/01/19 04:51 02/01/19 04:51 Labs: Abnormal lab results 01/31/19 01/31/19 01/31/19 Range/Units 10:02 11:04 22:04 MCHC (30-34) % Lymph % (Auto) 7.9 L (13.4-35.0) % Lymph # 0.5 L (1.2-5.4) K/mm3 Seg Neutrophils % 86.1 H (40.0-70.0) % Sodium (137-145) mmol/L Potassium (3.6-5.0) mmol/L Creatinine (0.7-1.2) mg/dL Glucose (65-100) mg/dL POC Glucose 107 H 128 H (70-105) Total Protein (6.3-8.2) g/dL Albumin (3.9-5) g/dL 02/01/19 02/01/19 Range/Units 04:51 04:51 MCHC 35 H (30-34) % Lymph % (Auto) (13.4-35.0) % Lymph # (1.2-5.4) K/mm3 Seg Neutrophils % (40.0-70.0) % Sodium 136 L (137-145) mmol/L Potassium 3.0 L (3.6-5.0) mmol/L Creatinine 0.4 L (0.7-1.2) mg/dL Glucose 146 H (65-100) mg/dL POC Glucose (70-105) Total Protein 6.1 L (6.3-8.2) g/dL Albumin 2.7 L (3.9-5) g/dL
--- NOTE | 2019-02-01 08:57 | Ultrasound Report ---
PROCEDURE: US RENAL BILAT TECHNIQUE: Grayscale and color Doppler ultrasound evaluation of the kidneys HISTORY: KIDNEY STONE, PAIN COMPARISONS: CT 01/29/2019 FINDINGS: The right kidney measures 13.3 cm and the left kidney measures 13.9 cm in length. No hydronephrosis. No abdominal ascites or free fluid in Dowling's pouch. A faintly echogenic nonshadowing area measuring up to 1.1 cm is present in the region of the right co llecting system. No definite stones identified in either kidney. IMPRESSION: No hydronephrosis or definite nephrolithiasis. A nonshadowing faintly echogenic area measuring up to 11 mm in the right collecting system may represent renal sinus fat. This document is electronically signed by Florentin Aragon MD., Feb 01 2019 08:55:18 AM ET
[2019-02-01] MEDS ORDERED: MAGNESIUM SULFATE 1 GM in NACL 0.9% 50 ML IV ONE (09:00)
[2019-02-01] MEDS: HumuLIN R SUB-Q SCH ×4 (09:20→22:32)
[2019-02-01] MEDS: MORPHINE IV PRN (09:38)
[2019-02-01] MEDS: SODIUM CHLORIDE FLUSH SYRINGE 10 ML IV SCH (09:39)
[2019-02-01] MEDS ORDERED: NACL 0.9% 500 ML 500 ML IV SCH (11:00)
[2019-02-01] MEDS: LOVENOX SUB-Q SCH (11:27)
[2019-02-01] MEDS: PERCOCET 5/325 PO PRN ×2 (11:43→18:03)
[2019-02-01] MEDS: INVanz 1 GM in NACL 0.9% 50 ML IV SCH (13:02)
[2019-02-01] MEDS: KCL 10MEQ/100ML 10 MEQ/100 ML BAG IV SCH ×4 (13:02→19:48)
[2019-02-01] MEDS: MAXIPIME/NS 2 GM/100 ML 2 GM/100 ML BAG IV SCH (13:13)
[2019-02-01] MEDS: TYLENOL PO PRN (22:42)
[2019-02-02] MEDS: SODIUM CHLORIDE FLUSH SYRINGE 10 ML IV SCH ×2 (03:24→11:16)
[2019-02-02] MEDS: D5NS 1,000 ML IV SCH (06:20)
[2019-02-02] MEDS: HumuLIN R SUB-Q SCH ×3 (08:23→16:41)
[2019-02-02 08:37] LABS: BUN/Creatinine Ratio 23; Blood Urea Nitrogen 7 mg/dL (7-17); Calcium 8.2 mg/dL (8.4-10.2); Hemolysis Index 1
[2019-02-02] MEDS ORDERED: K-DUR PO ONE (10:28)
--- NOTE | 2019-02-02 10:31 | Progress Note ---
Assessment and Plan Assessment and plan: 48-year-old woman with a history of hypertension, diabetes comes emergency room complaining of right flank pain that started 2 days ago, fever. Right flank pain is described as a ripping pain, constant, intensity 7/10, radiating to the back, better with pain medication in the emergency room. History for urinary tract infection in December, stated that she complete the treatment. Also complaining of dysuria. On admission to the hospital patient is noted to have very high fevers. Urine cultures showing gram-negative rods-ESBL Major studies consistent with nephrolithiasis Renal u/s NO HYDRONEPHROSIS OR DEFINIT NEPHROLITHASIS Sepsis due to pyelonephritis-URINE CULTURE SHOWING ESBL Acute pyelonephritis Acute gastroenteritis Right hydroureter Hypertension Diabetes Mellitus Plan Continue supportive care Urology input noted, renal ultrasound reviewed, no obstruction. can resume diet place on isolation wbc improved, fever still present but not to the degree noted yesterday Replace electroyte await ID/Sensitivity from urine culture Abx per ID, changed to ertapenem Continue accuchecks now that she is tolerating diet, will stop D5NS Contine accucheck Continue appropriate outpatient medications DVT prophylaxis Plan discussed with the patient. Hospitalist Physical - Constitutional Vitals: Temp Pulse Resp BP Pulse Ox 98.4 F 81 19 131/88 94 02/02/19 06:04 02/02/19 06:04 02/02/19 06:04 02/02/19 06:04 02/02/19 06:04 Results - Labs CBC & Chem 7: 02/01/19 04:51 02/02/19 07:45 Labs: Laboratory Last Values WBC 6.3 K/mm3 (4.5-11.0) 02/01/19 04:51 RBC 3.82 M/mm3 (3.65-5.03) 02/01/19 04:51 Hgb 11.1 gm/dl (10.1-14.3) 02/01/19 04:51 Hct 32.1 % (30.3-42.9) 02/01/19 04:51 MCV 84 fl (79-97) 02/01/19 04:51 MCH 29 pg (28-32) 02/01/19 04:51 MCHC 35 % (30-34) H 02/01/19 04:51 RDW 13.6 % (13.2-15.2) 02/01/19 04:51 Plt Count 218 K/mm3 (140-440) 02/01/19 04:51 Lymph % (Auto) 7.9 % (13.4-35.0) L 01/31/19 10:02 [place] % (Auto) 5.5 % (0.0-7.3) 01/31/19 10:02 Eos % (Auto) 0.0 % (0.0-4.3) 01/31/19 10:02 Baso % (Auto) 0.5 % (0.0-1.8) 01/31/19 10:02 Lymph # 0.5 K/mm3 (1.2-5.4) L 01/31/19 10:02 [place] # 0.4 K/mm3 (0.0-0.8) 01/31/19 10:02 Eos # 0.0 K/mm3 (0.0-0.4) 01/31/19 10:02 Baso # 0.0 K/mm3 (0.0-0.1) 01/31/19 10:02 Seg Neutrophils % 86.1 % (40.0-70.0) H 01/31/19 10:02 Seg Neutrophils # 5.8 K/mm3 (1.8-7.7) 01/31/19 10:02 Sodium 138 mmol/L (137-145) 02/02/19 07:45 Potassium 3.1 mmol/L (3.6-5.0) L 02/02/19 07:45 Chloride 100.1 mmol/L (98-107) 02/02/19 07:45 Carbon Dioxide 25 mmol/L (22-30) 02/02/19 07:45 16 mmol/L 02/02/19 07:45 BUN 7 mg/dL (7-17) 02/02/19 07:45 0.3 mg/dL (0.7-1.2) L 02/02/19 07:45 Estimated GFR > 60 ml/min 02/02/19 07:45 23 % 02/02/19 07:45 Glucose 130 mg/dL (65-100) H 02/02/19 07:45 POC Glucose 135 (70-105) H 02/02/19 08:32 Lactic Acid 0.90 mmol/L (0.7-2.0) 01/29/19 23:27 Calcium 8.2 mg/dL (8.4-10.2) L 02/02/19 07:45 0.40 mg/dL (0.1-1.2) 02/01/19 04:51 AST 31 units/L (5-40) 02/01/19 04:51 ALT 39 units/L (7-56) 02/01/19 04:51 92 units/L (35-129) 02/01/19 04:51 6.1 g/dL (6.3-8.2) L 02/01/19 04:51 2.7 g/dL (3.9-5) L 02/01/19 04:51 0.8 % 02/01/19 04:51 12 units/L (13-60) L 01/29/19 20:35 Yellow (Yellow) 01/29/19 21:34 Cloudy (Clear) 01/29/19 21:34 5.0 (5.0-7.0) 01/29/19 21:34 Ur Specific [place] 1.019 (1.003-1.030) 01/29/19 21:34 100 mg/dl mg/dL (Negative) 01/29/19 21:34 Neg mg/dL (Negative) 01/29/19 21:34 Neg mg/dL (Negative) 01/29/19 21:34 Mod (Negative) 01/29/19 21:34 Pos (Negative) 01/29/19 21:34 Neg (Negative) 01/29/19 21:34 < 2.0 mg/dL (<2.0) 01/29/19 21:34 Ur Leukocyte Esterase Sm (Negative) 01/29/19 21:34 73.0 /HPF (0.0-6.0) H 01/29/19 21:34 19.0 /HPF (0.0-6.0) 01/29/19 21:34 U Epithel Cells (Auto) 12.0 /HPF (0-13.0) 01/29/19 21:34 4+ /HPF (Negative) 01/29/19 21:34 3+ /HPF 01/29/19 21:34 Blood Type O POSITIVE 01/29/19 21:14 Antibody Screen Negative 01/29/19 21:14 Active Medications - Current Medications Current Medications: Generic Name Dose Route Start Last Admin Trade Name Freq PRN Reason Stop Dose Admin Acetaminophen 650 mg 01/30/19 01:29 02/01/19 22:42 Tylenol PO 650 mg Q4H PRN Administration Pain MILD(1-3)/Fever >100.5/SALINAS Acetaminophen 650 mg 01/31/19 22:29 01/31/19 23:14 Tylenol [place] 650 mg Q4H PRN Administration Fever >101 Dextrose 50 ml 01/30/19 01:29 D50w (25gm) Syringe IV PRN PRN Hypoglycemia Enoxaparin Sodium 40 mg 01/30/19 10:00 02/01/19 11:27 Lovenox SUB-Q 40 mg QDAY@1000 [place] Administration Dextrose/Sodium Chloride 1,000 mls @ 100 mls/hr 01/31/19 18:00 02/02/19 06:20 D5ns IV 100 mls/hr DIRECT [place] Administration Ertapenem 1 gm/ Sodium 50 mls @ 100 mls/hr 02/01/19 11:00 02/01/19 13:02 Chloride IV 100 mls/hr QDAY [place] Administration Sodium Chloride 500 mls @ 50 mls/hr 02/01/19 11:00 02/01/19 13:48 Nacl 0.9% 500 Ml IV 50 mls/hr DIRECT [place] Administration Insulin Human Regular 0 units 01/30/19 07:30 02/02/19 08:23 Humulin R SUB-Q Not Given ACHS [place] Protocol Morphine Sulfate 2 mg 01/30/19 12:01 02/01/19 09:38 Morphine IV 2 mg Q4H PRN Administration Pain, Moderate (4-6) Ondansetron HCl 4 mg 01/30/19 13:40 01/30/19 13:50 Zofran IV 4 mg Q4H PRN Administration Nausea And Vomiting Oxycodone/Acetaminophen 1 tab 01/30/19 01:29 02/01/19 18:03 Percocet 5/325 PO 1 tab Q6H PRN Administration Pain, Moderate (4-6) Potassium Chloride 40 meq 02/02/19 10:28 K-Dur PO 02/02/19 10:29 ONCE ONE Sodium Chloride 10 ml 01/30/19 10:00 02/02/19 03:24 Sodium Chloride Flush Syringe 10 Ml IV Not Given BID [place] Sodium Chloride 10 ml 01/30/19 01:29 Sodium Chloride Flush Syringe 10 Ml IV PRN PRN LINE FLUSH
--- NOTE | 2019-02-02 10:32 | Progress Note ---
Assessment and Plan Assessment and plan: 48-year-old woman with a history of hypertension, diabetes comes emergency room complaining of right flank pain that started 2 days ago, fever. Right flank pain is described as a ripping pain, constant, intensity 7/10, radiating to the back, better with pain medication in the emergency room. History for urinary tract infection in December, stated that she complete the treatment. Also complaining of dysuria. On admission to the hospital patient is noted to have very high fevers. Urine cultures showing gram-negative rods-ESBL Major studies consistent with nephrolithiasis Renal u/s NO HYDRONEPHROSIS OR NEPHROLITHASIS Sepsis due to pyelonephritis-URINE CULTURE SHOWING ESBL Acute pyelonephritis Acute gastroenteritis Right hydroureter-RESOLVED Nephrolithasis-Resolved Hypertension Diabetes Mellitus Plan Continue supportive care Urology input noted, renal ultrasound reviewed, no obstruction. can resume diet Continue isolation Replace electroyte await ID/Sensitivity from urine culture Abx per ID, changed to ertapenem Continue accuchecks now that she is tolerating diet, will stop D5NS Contine accucheck Continue appropriate outpatient medications DVT prophylaxis Plan discussed with the patient. History Interval history: Patient is examined this morning, NO Fever. she still reports a 2/10 right flank pain. no nausea and vomiting. Discussed with infectious disease. tolerating to diet, Hospitalist Physical - Physical exam Narrative exam: VITAL SIGNS: Reviewed. GENERAL: The patient appeared stable, still mild distress but improving. obese. Vital signs as documented. HEAD: No signs of head trauma. EYES: Pupils are equal. Extraocular motions intact. EARS: Hearing grossly intact. MOUTH: Oropharynx is normal. NECK: No adenopathy, no JVD. Mildly tender on the right side. CHEST: Chest with clear breath sounds bilaterally. No wheezes, rales, or rhonchi. CARDIAC: Regular rate and rhythm. S1 and S2, without murmurs, gallops, or rubs. VASCULAR: No Edema. Peripheral pulses normal and equal in all extremities. ABDOMEN: Soft, non distended. Right flank tenderness, improvingNo rebound or guarding, and no masses palpated. Bowel Sounds normal. MUSCULOSKELETAL: Good range of motion of all major joints. Extremities without clubbing, cyanosis or edema. NEUROLOGIC EXAM: Alert and oriented x 3 No focal sensory or strength deficits. Speech normal. Follows commands. PSYCHIATRIC: Mood normal. SKIN: No rash or lesions. - Constitutional Vitals: Temp Pulse Resp BP Pulse Ox 98.4 F 81 19 131/88 94 02/02/19 06:04 02/02/19 06:04 02/02/19 06:04 02/02/19 06:04 02/02/19 06:04 Results - Labs CBC & Chem 7: 02/01/19 04:51 02/02/19 07:45 Labs: Laboratory Last Values WBC 6.3 K/mm3 (4.5-11.0) 02/01/19 04:51 RBC 3.82 M/mm3 (3.65-5.03) 02/01/19 04:51 Hgb 11.1 gm/dl (10.1-14.3) 02/01/19 04:51 Hct 32.1 % (30.3-42.9) 02/01/19 04:51 MCV 84 fl (79-97) 02/01/19 04:51 MCH 29 pg (28-32) 02/01/19 04:51 MCHC 35 % (30-34) H 02/01/19 04:51 RDW 13.6 % (13.2-15.2) 02/01/19 04:51 Plt Count 218 K/mm3 (140-440) 02/01/19 04:51 Lymph % (Auto) 7.9 % (13.4-35.0) L 01/31/19 10:02 [place] % (Auto) 5.5 % (0.0-7.3) 01/31/19 10:02 Eos % (Auto) 0.0 % (0.0-4.3) 01/31/19 10:02 Baso % (Auto) 0.5 % (0.0-1.8) 01/31/19 10:02 Lymph # 0.5 K/mm3 (1.2-5.4) L 01/31/19 10:02 [place] # 0.4 K/mm3 (0.0-0.8) 01/31/19 10:02 Eos # 0.0 K/mm3 (0.0-0.4) 01/31/19 10:02 Baso # 0.0 K/mm3 (0.0-0.1) 01/31/19 10:02 Seg Neutrophils % 86.1 % (40.0-70.0) H 01/31/19 10:02 Seg Neutrophils # 5.8 K/mm3 (1.8-7.7) 01/31/19 10:02 Sodium 138 mmol/L (137-145) 02/02/19 07:45 Potassium 3.1 mmol/L (3.6-5.0) L 02/02/19 07:45 Chloride 100.1 mmol/L (98-107) 02/02/19 07:45 Carbon Dioxide 25 mmol/L (22-30) 02/02/19 07:45 16 mmol/L 02/02/19 07:45 BUN 7 mg/dL (7-17) 02/02/19 07:45 0.3 mg/dL (0.7-1.2) L 02/02/19 07:45 Estimated GFR > 60 ml/min 02/02/19 07:45 23 % 02/02/19 07:45 Glucose 130 mg/dL (65-100) H 02/02/19 07:45 POC Glucose 135 (70-105) H 02/02/19 08:32 Lactic Acid 0.90 mmol/L (0.7-2.0) 01/29/19 23:27 Calcium 8.2 mg/dL (8.4-10.2) L 02/02/19 07:45 0.40 mg/dL (0.1-1.2) 02/01/19 04:51 AST 31 units/L (5-40) 02/01/19 04:51 ALT 39 units/L (7-56) 02/01/19 04:51 92 units/L (35-129) 02/01/19 04:51 6.1 g/dL (6.3-8.2) L 02/01/19 04:51 2.7 g/dL (3.9-5) L 02/01/19 04:51 0.8 % 02/01/19 04:51 12 units/L (13-60) L 01/29/19 20:35 Yellow (Yellow) 01/29/19 21:34 Cloudy (Clear) 01/29/19 21:34 5.0 (5.0-7.0) 01/29/19 21:34 Ur Specific [place] 1.019 (1.003-1.030) 01/29/19 21:34 100 mg/dl mg/dL (Negative) 01/29/19 21:34 Neg mg/dL (Negative) 01/29/19 21:34 Neg mg/dL (Negative) 01/29/19 21:34 Mod (Negative) 01/29/19 21:34 Pos (Negative) 01/29/19 21:34 Neg (Negative) 01/29/19 21:34 < 2.0 mg/dL (<2.0) 01/29/19 21:34 Ur Leukocyte Esterase Sm (Negative) 01/29/19 21:34 73.0 /HPF (0.0-6.0) H 01/29/19 21:34 19.0 /HPF (0.0-6.0) 01/29/19 21:34 U Epithel Cells (Auto) 12.0 /HPF (0-13.0) 01/29/19 21:34 4+ /HPF (Negative) 01/29/19 21:34 3+ /HPF 01/29/19 21:34 Blood Type O POSITIVE 01/29/19 21:14 Antibody Screen Negative 01/29/19 21:14 Active Medications - Current Medications Current Medications: Generic Name Dose Route Start Last Admin Trade Name Freq PRN Reason Stop Dose Admin Acetaminophen 650 mg 01/30/19 01:29 02/01/19 22:42 Tylenol PO 650 mg Q4H PRN Administration Pain MILD(1-3)/Fever >100.5/SALINAS Acetaminophen 650 mg 01/31/19 22:29 01/31/19 23:14 Tylenol CA 650 mg Q4H PRN Administration Fever >101 Dextrose 50 ml 01/30/19 01:29 D50w (25gm) Syringe IV PRN PRN Hypoglycemia Enoxaparin Sodium 40 mg 01/30/19 10:00 02/01/19 11:27 Lovenox SUB-Q 40 mg QDAY@1000 [place] Administration Dextrose/Sodium Chloride 1,000 mls @ 100 mls/hr 01/31/19 18:00 02/02/19 06:20 D5ns IV 100 mls/hr DIRECT [place] Administration Ertapenem 1 gm/ Sodium 50 mls @ 100 mls/hr 02/01/19 11:00 02/01/19 13:02 Chloride IV 100 mls/hr QDAY [place] Administration Sodium Chloride 500 mls @ 50 mls/hr 02/01/19 11:00 02/01/19 13:48 Nacl 0.9% 500 Ml IV 50 mls/hr DIRECT [place] Administration Insulin Human Regular 0 units 01/30/19 07:30 02/02/19 08:23 Humulin R SUB-Q Not Given ACHS [facility] Protocol Morphine Sulfate 2 mg 01/30/19 12:01 02/01/19 09:38 Morphine IV 2 mg Q4H PRN Administration Pain, Moderate (4-6) Ondansetron HCl 4 mg 01/30/19 13:40 01/30/19 13:50 Zofran IV 4 mg Q4H PRN Administration Nausea And Vomiting Oxycodone/Acetaminophen 1 tab 01/30/19 01:29 02/01/19 18:03 Percocet 5/325 PO 1 tab Q6H PRN Administration Pain, Moderate (4-6) Sodium Chloride 10 ml 01/30/19 10:00 02/02/19 03:24 Sodium Chloride Flush Syringe 10 Ml IV Not Given BID [place] Sodium Chloride 10 ml 01/30/19 01:29 Sodium Chloride Flush Syringe 10 Ml IV PRN PRN LINE FLUSH
[2019-02-02] MEDS: LOVENOX SUB-Q SCH (11:14)
[2019-02-02] MEDS: PERCOCET 5/325 PO PRN ×2 (11:15→17:32)
[2019-02-02] MEDS: INVanz 1 GM in NACL 0.9% 50 ML IV SCH (11:15)
[2019-02-03] MEDS: HumuLIN R SUB-Q SCH ×5 (00:15→22:00)
[2019-02-03] MEDS: PERCOCET 5/325 PO PRN (03:24)
[2019-02-03] MEDS: SODIUM CHLORIDE FLUSH SYRINGE 10 ML IV SCH ×3 (03:29→22:37)
[2019-02-03] MEDS: INVanz 1 GM in NACL 0.9% 50 ML IV SCH (09:15)
[2019-02-03] MEDS: LOVENOX SUB-Q SCH (09:15)
[2019-02-03 09:38] LABS: BUN/Creatinine Ratio 37; Blood Urea Nitrogen 11 mg/dL (7-17); Calcium 8.6 mg/dL (8.4-10.2); Hemolysis Index 3
--- NOTE | 2019-02-03 09:46 | Progress Note ---
Assessment and Plan Cultures: 01/29/2019 Blood culture: no growth 01/29/2019 Urine culture: ESBL E coli A/P 48-dilan old female with a past medical history of hypertension and diabetes, that presented at [facility] on 01/29/19 with complains of right flank pain, radiating to the back. Patient states that this has been ongoing for the past 2 days, in her lower abdominal region, as well as right upper quadrant abdominal region. Upon further evaluation, she stated that she was treated for a UTI in December and her treatment is completed. Admitted for: 1. Sepsis: Resolved. Etiology most likely UTI. Urine cultures ESBL E coli. Blood cultures show no growth to date. CT of abdomen and pelvis show no lung consolidation. 2. Complicated UTI: U/A c/w UTI, WBC 73, small LE. CT of abdomen and pelvis show tiny non obstructing right renal calculus and mild right hydroureter without definite signs of obstructing calculus. Previous admission at [facility] in December with UTI. Given a prescription for Ciprofloxacin BID, 20 day regimen, treatment completed. Urine culture grew ESBL E coli. Renal US on 02/01 w/o hydronephrosis and no definitive nephrolithiasis. 3. Type 2 Diabetes: recommend tight glycemic control. Plan: -Urology evaluation noted. -continue ertapenem 1 gm IV every 24 hours, D3 -Anticipate discharge on ertapenem 1 gm IV every 24 hours ending 02-10-19 -Midline ordered Order placed with [facility] for OPAT Order placed with case management Continue contact precaution [facility] M: [phone] O:[phone] Subjective Date of service: 02/03/19 Interval history: Patient seen and examined. States that she is feeling better today. Right flank pain improved. No fevers. Objective - Exam Narrative Exam: Constitutional: Alert. Awake. No acute distress Head, Ears, Nose: Normocephalic, atraumatic. External ears, nose normal Eyes: Conjunctivae/corneas clear. No icterus. No ptosis. Neck: Supple, no meningeal signs Oral: dentition fair. no thrush. Cardiovascular: S1, S2 normal. Respiratory: Good air entry, clear to auscultation bilaterally GI: Soft, non-tender; bowel sounds. Right flank pain improved. Musculoskeletal: No pedal edema, no cyanosis. Skin: No rash or abscess. Hem/Lymphatic: No palpable cervical or supraclavicular nodes. No lymphangitis Psych: Mood ok. Affect normal Neurological: Awake, alert, oriented. - Constitutional Vitals: Vital Signs Temp Pulse Resp BP Pulse Ox 97.4 F L 76 18 129/81 96 02/02/19 23:17 02/02/19 23:17 02/02/19 23:17 02/02/19 23:17 02/02/19 23:17 Temperature -Last 24 Hours Temperature 97.4 F Temperature 97.5 F Temperature 98.8 F - Labs CBC & Chem 7: 02/01/19 04:51 02/03/19 08:50 Labs: Abnormal lab results 02/02/19 02/02/19 02/02/19 Range/Units 12:48 16:20 22:55 Creatinine (0.7-1.2) mg/dL Glucose (65-100) mg/dL POC Glucose 111 H 110 H 113 H (70-105) 02/03/19 Range/Units 08:50 Creatinine 0.3 L (0.7-1.2) mg/dL Glucose 106 H (65-100) mg/dL POC Glucose (70-105)
--- NOTE | 2019-02-03 15:33 | Progress Note ---
Assessment and Plan Assessment and plan: 48-year-old woman with a history of hypertension, diabetes comes emergency room complaining of right flank pain that started 2 days ago, fever. Right flank pain is described as a ripping pain, constant, intensity 7/10, radiating to the back, better with pain medication in the emergency room. History for urinary tract infection in December, stated that she complete the treatment. Also complaining of dysuria. On admission to the hospital patient is noted to have very high fevers. Urine cultures showing gram-negative rods-ESBL Major studies consistent with nephrolithiasis Renal u/s NO HYDRONEPHROSIS OR NEPHROLITHASIS Sepsis due to pyelonephritis-URINE CULTURE SHOWING ESBL Acute pyelonephritis Acute gastroenteritis Right hydroureter-RESOLVED Nephrolithasis-Resolved Hypertension Diabetes Mellitus Morbid obesity Plan Continue supportive care * Patient was evaluated by urology and found not to have any hydronephrosis at this time on nephrolithiasis again this could've been cleared us ultrasound was done few days after treatment was initiated. * Urine culture grew ESBL for which the patient is now on ertapenem and will be discharged on this to complete on 02-10-19 * Case management is currently working on how we can provide this medication for this patient and this is the only thing holding discharge * Midline has been ordered * Weight loss counseling was provided to the patient Abx per ID, changed to ertapenem Continue accuchecks Contine accucheck Continue appropriate outpatient medications DVT prophylaxis Plan discussed with the patient. The discharge wants outpatient IV antibiotics as arranged History Interval history: Patient is examined this morning, clinically improved. Tolerating diet Hospitalist Physical - Physical exam Narrative exam: VITAL SIGNS: Reviewed. GENERAL: The patient appeared stable, still mild distress but improving. obese. Vital signs as documented. HEAD: No signs of head trauma. EYES: Pupils are equal. Extraocular motions intact. EARS: Hearing grossly intact. MOUTH: Oropharynx is normal. NECK: No adenopathy, no JVD. Mildly tender on the right side. CHEST: Chest with clear breath sounds bilaterally. No wheezes, rales, or rhonchi. CARDIAC: Regular rate and rhythm. S1 and S2, without murmurs, gallops, or rubs. VASCULAR: No Edema. Peripheral pulses normal and equal in all extremities. ABDOMEN: Soft, non distended. Right flank tenderness, improving. No rebound or guarding, and no masses palpated. Bowel Sounds normal. MUSCULOSKELETAL: Good range of motion of all major joints. Extremities without clubbing, cyanosis or edema. NEUROLOGIC EXAM: Alert and oriented x 3 No focal sensory or strength deficits. Speech normal. Follows commands. PSYCHIATRIC: Mood normal. SKIN: No rash or lesions. - Constitutional Vitals: Temp Pulse Resp BP Pulse Ox 98.2 F 76 18 125/76 98 02/03/19 12:26 02/03/19 12:26 02/03/19 12:26 02/03/19 12:26 02/03/19 12:26 Results - Labs CBC & Chem 7: 02/01/19 04:51 02/03/19 08:50 Labs: Laboratory Last Values WBC 6.3 K/mm3 (4.5-11.0) 02/01/19 04:51 RBC 3.82 M/mm3 (3.65-5.03) 02/01/19 04:51 Hgb 11.1 gm/dl (10.1-14.3) 02/01/19 04:51 Hct 32.1 % (30.3-42.9) 02/01/19 04:51 MCV 84 fl (79-97) 02/01/19 04:51 MCH 29 pg (28-32) 02/01/19 04:51 MCHC 35 % (30-34) H 02/01/19 04:51 RDW 13.6 % (13.2-15.2) 02/01/19 04:51 Plt Count 218 K/mm3 (140-440) 02/01/19 04:51 Lymph % (Auto) 7.9 % (13.4-35.0) L 01/31/19 10:02 [place] % (Auto) 5.5 % (0.0-7.3) 01/31/19 10:02 Eos % (Auto) 0.0 % (0.0-4.3) 01/31/19 10:02 Baso % (Auto) 0.5 % (0.0-1.8) 01/31/19 10:02 Lymph # 0.5 K/mm3 (1.2-5.4) L 01/31/19 10:02 [place] # 0.4 K/mm3 (0.0-0.8) 01/31/19 10:02 Eos # 0.0 K/mm3 (0.0-0.4) 01/31/19 10:02 Baso # 0.0 K/mm3 (0.0-0.1) 01/31/19 10:02 Seg Neutrophils % 86.1 % (40.0-70.0) H 01/31/19 10:02 Seg Neutrophils # 5.8 K/mm3 (1.8-7.7) 01/31/19 10:02 Sodium 139 mmol/L (137-145) 02/03/19 08:50 Potassium 3.6 mmol/L (3.6-5.0) 02/03/19 08:50 Chloride 99.3 mmol/L (98-107) 02/03/19 08:50 Carbon Dioxide 27 mmol/L (22-30) 02/03/19 08:50 16 mmol/L 02/03/19 08:50 BUN 11 mg/dL (7-17) 02/03/19 08:50 0.3 mg/dL (0.7-1.2) L 02/03/19 08:50 Estimated GFR > 60 ml/min 02/03/19 08:50 37 % 02/03/19 08:50 Glucose 106 mg/dL (65-100) H 02/03/19 08:50 POC Glucose 113 (70-105) H 02/03/19 11:20 Lactic Acid 0.90 mmol/L (0.7-2.0) 01/29/19 23:27 Calcium 8.6 mg/dL (8.4-10.2) 02/03/19 08:50 0.40 mg/dL (0.1-1.2) 02/01/19 04:51 AST 31 units/L (5-40) 02/01/19 04:51 ALT 39 units/L (7-56) 02/01/19 04:51 92 units/L (35-129) 02/01/19 04:51 6.1 g/dL (6.3-8.2) L 02/01/19 04:51 2.7 g/dL (3.9-5) L 02/01/19 04:51 0.8 % 02/01/19 04:51 12 units/L (13-60) L 01/29/19 20:35 Yellow (Yellow) 01/29/19 21:34 Cloudy (Clear) 01/29/19 21:34 5.0 (5.0-7.0) 01/29/19 21:34 Ur Specific [place] 1.019 (1.003-1.030) 01/29/19 21:34 100 mg/dl mg/dL (Negative) 01/29/19 21:34 Neg mg/dL (Negative) 01/29/19 21:34 Neg mg/dL (Negative) 01/29/19 21:34 Mod (Negative) 01/29/19 21:34 Pos (Negative) 01/29/19 21:34 Neg (Negative) 01/29/19 21:34 < 2.0 mg/dL (<2.0) 01/29/19 21:34 Ur Leukocyte Esterase Sm (Negative) 01/29/19 21:34 73.0 /HPF (0.0-6.0) H 01/29/19 21:34 19.0 /HPF (0.0-6.0) 01/29/19 21:34 U Epithel Cells (Auto) 12.0 /HPF (0-13.0) 01/29/19 21:34 4+ /HPF (Negative) 01/29/19 21:34 3+ /HPF 01/29/19 21:34 Blood Type O POSITIVE 01/29/19 21:14 Antibody Screen Negative 01/29/19 21:14 Active Medications - Current Medications Current Medications: Generic Name Dose Route Start Last Admin Trade Name Freq PRN Reason Stop Dose Admin Acetaminophen 650 mg 01/30/19 01:29 02/01/19 22:42 Tylenol PO 650 mg Q4H PRN Administration Pain MILD(1-3)/Fever >100.5/SALINAS Acetaminophen 650 mg 01/31/19 22:29 01/31/19 23:14 Tylenol [place] 650 mg Q4H PRN Administration Fever >101 Dextrose 50 ml 01/30/19 01:29 D50w (25gm) Syringe IV PRN PRN Hypoglycemia Enoxaparin Sodium 40 mg 01/30/19 10:00 02/03/19 09:15 Lovenox SUB-Q 40 mg QDAY@1000 [place] Administration Ertapenem 1 gm/ Sodium 50 mls @ 100 mls/hr 02/01/19 11:00 02/03/19 09:15 Chloride IV 100 mls/hr QDAY [place] Administration Sodium Chloride 500 mls @ 50 mls/hr 02/01/19 11:00 02/01/19 13:48 Nacl 0.9% 500 Ml IV 50 mls/hr DIRECT [place] Administration Insulin Human Regular 0 units 01/30/19 07:30 02/03/19 12:46 Humulin R SUB-Q Not Given ACHS [facility] Protocol Morphine Sulfate 2 mg 01/30/19 12:01 02/01/19 09:38 Morphine IV 2 mg Q4H PRN Administration Pain, Moderate (4-6) Ondansetron HCl 4 mg 01/30/19 13:40 01/30/19 13:50 Zofran IV 4 mg Q4H PRN Administration Nausea And Vomiting Oxycodone/Acetaminophen 1 tab 01/30/19 01:29 02/03/19 03:24 Percocet 5/325 PO 1 tab Q6H PRN Administration Pain, Moderate (4-6) Sodium Chloride 10 ml 01/30/19 10:00 02/03/19 09:16 Sodium Chloride Flush Syringe 10 Ml IV 10 ml BID [place] Administration Sodium Chloride 10 ml 01/30/19 01:29 Sodium Chloride Flush Syringe 10 Ml IV PRN PRN LINE FLUSH
[2019-02-04] MEDS: HumuLIN R SUB-Q SCH ×3 (07:42→21:45)
--- NOTE | 2019-02-04 09:25 | Progress Note ---
Assessment and Plan Cultures: 01/29/2019 Blood culture: no growth 01/29/2019 Urine culture: ESBL E coli A/P 48-dilan old female with a past medical history of hypertension and diabetes, that presented at [facility] on 01/29/19 with complains of right flank pain, radiating to the back. Patient states that this has been ongoing for the past 2 days, in her lower abdominal region, as well as right upper quadrant abdominal region. Upon further evaluation, she stated that she was treated for a UTI in December and her treatment is completed. Admitted for: 1. Sepsis: Resolved. Etiology most likely UTI. Urine cultures ESBL E coli. Blood cultures show no growth to date. CT of abdomen and pelvis show no lung consolidation. 2. Complicated UTI: U/A c/w UTI, WBC 73, small LE. CT of abdomen and pelvis show tiny non obstructing right renal calculus and mild right hydroureter without definite signs of obstructing calculus. Previous admission at [facility] in December with UTI. Given a prescription for Ciprofloxacin BID, 20 day regimen, treatment completed. Urine culture grew ESBL E coli. Renal US on 02/01 w/o hydronephrosis and no definitive nephrolithiasis. 3. Type 2 Diabetes: recommend tight glycemic control. Plan: -continue ertapenem 1 gm IV every 24 hours, D4 -Anticipate discharge on ertapenem 1 gm IV every 24 hours ending 02-10-19 Order placed with [facility] for OPAT Order placed with case management Continue contact precaution [facility] M: [phone] O:[phone] Subjective Date of service: 02/04/19 Interval history: Patient seen and examined. States that she is feeling better today. Right flank pain improved. No fevers. Objective - Exam Narrative Exam: Constitutional: Alert. Awake. No acute distress Head, Ears, Nose: Normocephalic, atraumatic. External ears, nose normal Eyes: Conjunctivae/corneas clear. No icterus. No ptosis. Neck: Supple, no meningeal signs Oral: dentition fair. no thrush. Cardiovascular: S1, S2 normal. Respiratory: Good air entry, clear to auscultation bilaterally GI: Soft, non-tender; bowel sounds. Right flank pain improved. Musculoskeletal: No pedal edema, no cyanosis. Skin: No rash or abscess. Hem/Lymphatic: No palpable cervical or supraclavicular nodes. No lymphangitis Psych: Mood ok. Affect normal Neurological: Awake, alert, oriented. - Constitutional Vitals: Vital Signs Temp Pulse Resp BP Pulse Ox 97.7 F 66 24 115/64 99 02/04/19 05:32 02/04/19 05:32 02/04/19 05:32 02/04/19 05:32 02/04/19 05:32 Temperature -Last 24 Hours Temperature 97.7 F Temperature 98.5 F Temperature 98.1 F Temperature 98.2 F - Labs CBC & Chem 7: 02/01/19 04:51 02/03/19 08:50 Labs: Abnormal lab results 02/03/19 02/03/19 02/03/19 Range/Units 08:50 11:20 16:07 Creatinine 0.3 L (0.7-1.2) mg/dL Glucose 106 H (65-100) mg/dL POC Glucose 113 H 128 H (70-105) 02/03/19 02/04/19 Range/Units 21:35 07:40 Creatinine (0.7-1.2) mg/dL Glucose (65-100) mg/dL POC Glucose 106 H 116 H (70-105)
[2019-02-04] MEDS: INVanz 1 GM in NACL 0.9% 50 ML IV SCH (11:50)
[2019-02-04] MEDS: LOVENOX SUB-Q SCH (11:52)
[2019-02-04] MEDS: SODIUM CHLORIDE FLUSH SYRINGE 10 ML IV SCH ×2 (11:53→21:45)
--- NOTE | 2019-02-04 16:08 | Progress Note ---
Assessment and Plan Assessment and plan: 48-year-old woman with a history of hypertension, diabetes comes emergency room complaining of right flank pain that started 2 days ago, fever. Right flank pain is described as a ripping pain, constant, intensity 7/10, radiating to the back, better with pain medication in the emergency room. History for urinary tract infection in December, stated that she complete the treatment. Also complaining of dysuria. On admission to the hospital patient is noted to have very high fevers. Urine cultures showing gram-negative rods-ESBL Major studies consistent with nephrolithiasis Renal u/s NO HYDRONEPHROSIS OR NEPHROLITHASIS Sepsis due to pyelonephritis-URINE CULTURE SHOWING ESBL Acute pyelonephritis Acute gastroenteritis Right hydroureter-RESOLVED Nephrolithasis-Resolved Hypertension Diabetes Mellitus Morbid obesity Plan Continue supportive care Patient was evaluated by urology and found not to have any hydronephrosis at this time on nephrolithiasis again this could've been cleared as ultrasound was done few days after treatment was initiated. Urine culture grew ESBL for which the patient is now on ertapenem and will be discharged on this to complete on 02-10-19 Case management is currently working on how we can provide this medication for this patient and this is the only thing holding discharge Midline has been ordered Weight loss counseling was provided to the patient Abx per ID, changed to ertapenem Continue accuchecks Contine accucheck Continue appropriate outpatient medications DVT prophylaxis Plan discussed with the patient. The discharge wants outpatient IV antibiotics as arranged History Interval history: Patient was seen and evaluated this morning, patient denies any complaints. Hospitalist Physical - Physical exam Narrative exam: Not in cardiopulmonary distress. The patient is morbidly obese. Vital signs as documented. Head exam is unremarkable. No scleral icterus . Neck is without jugular venous distension, thyromegaly, or carotid bruits. Lungs are clear to auscultation. Cardiac exam reveals regular rate and Rhythm. Abdominal exam reveals normal bowel sounds. Extremities are nonedematous and both femoral and pedal pulses are normal. [employer]: Alert and oriented 3. No focal weakness. - Constitutional Vitals: Temp Pulse Resp BP Pulse Ox 98.2 F 74 20 130/81 96 02/04/19 13:10 02/04/19 13:10 02/04/19 13:10 02/04/19 13:10 02/04/19 13:10 Results - Labs CBC & Chem 7: 02/01/19 04:51 02/03/19 08:50 Labs: Laboratory Last Values WBC 6.3 K/mm3 (4.5-11.0) 02/01/19 04:51 RBC 3.82 M/mm3 (3.65-5.03) 02/01/19 04:51 Hgb 11.1 gm/dl (10.1-14.3) 02/01/19 04:51 Hct 32.1 % (30.3-42.9) 02/01/19 04:51 MCV 84 fl (79-97) 02/01/19 04:51 MCH 29 pg (28-32) 02/01/19 04:51 MCHC 35 % (30-34) H 02/01/19 04:51 RDW 13.6 % (13.2-15.2) 02/01/19 04:51 Plt Count 218 K/mm3 (140-440) 02/01/19 04:51 Lymph % (Auto) 7.9 % (13.4-35.0) L 01/31/19 10:02 [place] % (Auto) 5.5 % (0.0-7.3) 01/31/19 10:02 Eos % (Auto) 0.0 % (0.0-4.3) 01/31/19 10:02 Baso % (Auto) 0.5 % (0.0-1.8) 01/31/19 10:02 Lymph # 0.5 K/mm3 (1.2-5.4) L 01/31/19 10:02 [place] # 0.4 K/mm3 (0.0-0.8) 01/31/19 10:02 Eos # 0.0 K/mm3 (0.0-0.4) 01/31/19 10:02 Baso # 0.0 K/mm3 (0.0-0.1) 01/31/19 10:02 Seg Neutrophils % 86.1 % (40.0-70.0) H 01/31/19 10:02 Seg Neutrophils # 5.8 K/mm3 (1.8-7.7) 01/31/19 10:02 Sodium 139 mmol/L (137-145) 02/03/19 08:50 Potassium 3.6 mmol/L (3.6-5.0) 02/03/19 08:50 Chloride 99.3 mmol/L (98-107) 02/03/19 08:50 Carbon Dioxide 27 mmol/L (22-30) 02/03/19 08:50 16 mmol/L 02/03/19 08:50 BUN 11 mg/dL (7-17) 02/03/19 08:50 0.3 mg/dL (0.7-1.2) L 02/03/19 08:50 Estimated GFR > 60 ml/min 02/03/19 08:50 37 % 02/03/19 08:50 Glucose 106 mg/dL (65-100) H 02/03/19 08:50 POC Glucose 114 (70-105) H 02/04/19 12:08 Lactic Acid 0.90 mmol/L (0.7-2.0) 01/29/19 23:27 Calcium 8.6 mg/dL (8.4-10.2) 02/03/19 08:50 0.40 mg/dL (0.1-1.2) 02/01/19 04:51 AST 31 units/L (5-40) 02/01/19 04:51 ALT 39 units/L (7-56) 02/01/19 04:51 92 units/L (35-129) 02/01/19 04:51 6.1 g/dL (6.3-8.2) L 02/01/19 04:51 2.7 g/dL (3.9-5) L 02/01/19 04:51 0.8 % 02/01/19 04:51 12 units/L (13-60) L 01/29/19 20:35 Yellow (Yellow) 01/29/19 21:34 Cloudy (Clear) 01/29/19 21:34 5.0 (5.0-7.0) 01/29/19 21:34 Ur Specific [place] 1.019 (1.003-1.030) 01/29/19 21:34 100 mg/dl mg/dL (Negative) 01/29/19 21:34 Neg mg/dL (Negative) 01/29/19 21:34 Neg mg/dL (Negative) 01/29/19 21:34 Mod (Negative) 01/29/19 21:34 Pos (Negative) 01/29/19 21:34 Neg (Negative) 01/29/19 21:34 < 2.0 mg/dL (<2.0) 01/29/19 21:34 Ur Leukocyte Esterase Sm (Negative) 01/29/19 21:34 73.0 /HPF (0.0-6.0) H 01/29/19 21:34 19.0 /HPF (0.0-6.0) 01/29/19 21:34 U Epithel Cells (Auto) 12.0 /HPF (0-13.0) 01/29/19 21:34 4+ /HPF (Negative) 01/29/19 21:34 3+ /HPF 01/29/19 21:34 Blood Type O POSITIVE 01/29/19 21:14 Antibody Screen Negative 01/29/19 21:14 Active Medications - Current Medications Current Medications: Generic Name Dose Route Start Last Admin Trade Name Freq PRN Reason Stop Dose Admin Acetaminophen 650 mg 01/30/19 01:29 02/01/19 22:42 Tylenol PO 650 mg Q4H PRN Administration Pain MILD(1-3)/Fever >100.5/SALINAS Acetaminophen 650 mg 01/31/19 22:29 01/31/19 23:14 Tylenol [place] 650 mg Q4H PRN Administration Fever >101 Dextrose 50 ml 01/30/19 01:29 D50w (25gm) Syringe IV PRN PRN Hypoglycemia Enoxaparin Sodium 40 mg 01/30/19 10:00 02/04/19 11:52 Lovenox SUB-Q 40 mg QDAY@1000 [place] Administration Ertapenem 1 gm/ Sodium 50 mls @ 100 mls/hr 02/01/19 11:00 02/04/19 11:50 Chloride IV 02/10/19 10:29 100 mls/hr QDAY [place] Administration Sodium Chloride 500 mls @ 50 mls/hr 02/01/19 11:00 02/01/19 13:48 Nacl 0.9% 500 Ml IV 50 mls/hr DIRECT [place] Administration Insulin Human Regular 0 units 01/30/19 07:30 02/04/19 07:42 Humulin R SUB-Q Not Given ACHS [place] Protocol Morphine Sulfate 2 mg 01/30/19 12:01 02/01/19 09:38 Morphine IV 2 mg Q4H PRN Administration Pain, Moderate (4-6) Ondansetron HCl 4 mg 01/30/19 13:40 01/30/19 13:50 Zofran IV 4 mg Q4H PRN Administration Nausea And Vomiting Oxycodone/Acetaminophen 1 tab 01/30/19 01:29 02/03/19 03:24 Percocet 5/325 PO 1 tab Q6H PRN Administration Pain, Moderate (4-6) Sodium Chloride 10 ml 01/30/19 10:00 02/04/19 11:53 Sodium Chloride Flush Syringe 10 Ml IV 10 ml BID [place] Administration Sodium Chloride 10 ml 01/30/19 01:29 Sodium Chloride Flush Syringe 10 Ml IV PRN PRN LINE FLUSH
[2019-02-04] MEDS: PERCOCET 5/325 PO PRN (16:25)
[2019-02-05] MEDS: PERCOCET 5/325 PO PRN (06:00)
[2019-02-05 06:14] VITALS: BP 124/78
[2019-02-05] MEDS: HumuLIN R SUB-Q SCH (08:14)
--- NOTE | 2019-02-05 08:40 | Progress Note ---
Assessment and Plan Cultures: 01/29/2019 Blood culture: no growth 01/29/2019 Urine culture: ESBL E coli A/P 48-dilan old female with a past medical history of hypertension and diabetes, that presented at [facility] on 01/29/19 with complains of right flank pain, radiating to the back. Patient states that this has been ongoing for the past 2 days, in her lower abdominal region, as well as right upper quadrant abdominal region. Upon further evaluation, she stated that she was treated for a UTI in December and her treatment is completed. Admitted for: 1. Sepsis: Resolved. Etiology most likely UTI. Urine cultures ESBL E coli. Blood cultures show no growth to date. CT of abdomen and pelvis show no lung consolidation. 2. Complicated UTI: U/A c/w UTI, WBC 73, small LE. CT of abdomen and pelvis show tiny non obstructing right renal calculus and mild right hydroureter without definite signs of obstructing calculus. Previous admission at [facility] in December with UTI. Given a prescription for Ciprofloxacin BID, 20 day regimen, treatment completed. Urine culture grew ESBL E coli. Renal US on 02/01 w/o hydronephrosis and no definitive nephrolithiasis. 3. Type 2 Diabetes: recommend tight glycemic control. Plan: -continue ertapenem 1 gm IV every 24 hours, D4 -Anticipate discharge on ertapenem 1 gm IV every 24 hours ending 02-10-19 Order placed with [facility] for OPAT Ok to discharge from ID standpoint, OPAT set up, teach and train scheduled for tomorrow 02/06/19 @ 12:00 pm Niki Dominguez NP [facility] M: [phone] O:[phone] Subjective Date of service: 02/05/19 Interval history: Patient seen and examined. States that she is feeling better today. OPAT discus sed. Daughter at bedside. . Objective - Exam Narrative Exam: Constitutional: Alert. Awake. No acute distress Head, Ears, Nose: Normocephalic, atraumatic. External ears, nose normal Eyes: Conjunctivae/corneas clear. No icterus. No ptosis. Neck: Supple, no meningeal signs Oral: dentition fair. no thrush. Cardiovascular: S1, S2 normal. Respiratory: Good air entry, clear to auscultation bilaterally GI: Soft, non-tender; bowel sounds. Right flank pain improved. Musculoskeletal: No pedal edema, no cyanosis. Skin: No rash or abscess. Hem/Lymphatic: No palpable cervical or supraclavicular nodes. No lymphangitis Psych: Mood ok. Affect normal Neurological: Awake, alert, oriented. - Constitutional Vitals: Vital Signs Temp Pulse Resp BP Pulse Ox 98.0 F 79 17 124/78 98 02/05/19 05:25 02/05/19 05:25 02/05/19 07:00 02/05/19 05:25 02/05/19 05:25 Temperature -Last 24 Hours Temperature 98.0 F Temperature 98.0 F Temperature 97.7 F Temperature 98.2 F - Labs CBC & Chem 7: 02/01/19 04:51 02/03/19 08:50 Labs: Abnormal lab results 02/04/19 02/04/19 02/04/19 Range/Units 12:08 18:00 21:45 POC Glucose 114 H 108 H 109 H (70-105)
--- NOTE | 2019-02-05 10:45 | Discharge Summary ---
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 COLI UTI Antimicrobial administration: Anticipate discharge on ertapenem 1 gm IV every 24 hours ending 02-10-19. Remove Midline after last dose unless otherwise instructed. Lines: Midline Lab monitoring: CBC, BUN, Creatinine, ALT, AST, once a week preferly on Sunday morning. Please fax results to [phone] and call [phone] for critical lab results. Niki Dominguez NP/Elizabeth Edwards MD Date: 02/03/19 02/03/19 14:24 PICC Line Insertion [Consult to PICC Line RN] [CONS] Urgent Reason For Exam: OPAT Type Line:: Midline [facility] Reason for admission: Sepsis, ESBL E.coli, UTI Condition: Stable Hospital course: 48-year-old woman with a history of hypertension, diabetes comes emergency room complaining of right flank pain that started 2 days ago, fever. Right flank pain is described as a ripping pain, constant, intensity 7/10, radiating to the back, better with pain medication in the emergency room. History for urinary tract infection in December, stated that she complete the treatment. Also complaining of dysuria. On admission to the hospital patient is noted to have very high fevers. Urine cultures showing gram-negative rods-ESBL. Sepsis due to pyelonephritis-URINE CULTURE SHOWING ESBL. Patient was evaluated by urology and found not to have any hydronephrosis at this time no nephrolithiasis again this could've been cleared as ultrasound was done few days after treatment was initiated. Urine culture grew ESBL for which ID was consulted and put her on ertapenem and will be discharged on this to complete on 02-10-19. ID and CM arranged home IV antibiotics at the time of DC. Patient was hemodynamically stable at the time of discharge. Disposition: [id number] HOME UNDER HOME [facility] Time spent for discharge: 32 minutes - Discharge Diagnoses (1) Sepsis Status: Acute (2) Nephrolithiasis Status: Acute (3) Pyelonephritis Status: Acute Core Measure Documentation - Palliative Care Palliative Care/ Comfort Measures: Not Applicable - Core Measures Any of the following diagnoses?: none Exam - Physical Exam Narrative exam: Not in cardiopulmonary distress. The patient is morbidly obese. Vital signs as documented. Head exam is unremarkable. No scleral icterus . Neck is without jugular venous distension, thyromegaly, or carotid bruits. Lungs are clear to auscultation. Cardiac exam reveals regular rate and Rhythm. Abdominal exam reveals normal bowel sounds. Extremities are nonedematous and both femoral and pedal pulses are normal. 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 No focal weakness. - Constitutional Vitals: Temp Pulse Resp BP Pulse Ox 98.0 F 79 17 124/78 98 02/05/19 05:25 02/05/19 05:25 02/05/19 07:00 02/05/19 05:25 02/05/19 05:25 Plan Activity: no restrictions Weight Bearing Status: Full Weight Bearing Diet: low salt Follow up with: JONI DE LA CRUZ MD [Primary Care Provider] - 3-5 Days
[2019-02-05] MEDS: INVanz 1 GM in NACL 0.9% 50 ML IV SCH (11:21)
[2019-02-05] MEDS: SODIUM CHLORIDE FLUSH SYRINGE 10 ML IV SCH (11:22)
[2019-02-05] MEDS: LOVENOX SUB-Q SCH (11:27)
== END 2019-02-05 12:30 | disposition home health service (06) | DRG 872 ==
LOC: ED 20:04 → 3A 01-30 01:29
PROVIDERS: ADMIT Internal Medicine; ATTEND Internal Medicine
PROC: 05HY33Z Insertion of Infusion Device into Upper Vein, Percutaneous Approach (ICD-10-PCS; principal; 2019-02-04)
DX: A41.9 Sepsis, unspecified organism (principal); N10 Acute pyelonephritis; N13.4 Hydroureter; Z68.41 Body mass index [BMI] 40.0-44.9, adult; N20.0 Calculus of kidney; E11.9 Type 2 diabetes mellitus without complications; I10 Essential (primary) hypertension; R65.20 Severe sepsis without septic shock; K52.9 Noninfective gastroenteritis and colitis, unspecified; E66.01 Morbid (severe) obesity due to excess calories; Z87.440 Personal history of urinary (tract) infections; Z82.49 Family history of ischemic heart disease and other diseases of the circulatory system
CPT/HCPCS: 36415; 74176; 76770; 80048; 80053; 81001; 82140; 82962; 83690; 85025; 85027; 86850; 86900; 86901; 87040; 87076; 87086; 87186; 93005; 93010; 94760; G0378; J0692; J0696; J1335; J1650; J1815; J1956; J2270; J2405; J3475; J3480; J7030; J7040; J7042